=== PATIENT | male | born 1940 | race Caucasian/White ===

== ENCOUNTER 2020-11-01 01:31 | Inpatient (IN) ==
[2020-11-01] MEDS ORDERED: 0.9 % Sodium Chloride 1,000 ML IVC ONE ×2 (01:42→06:45)
[2020-11-01] MEDS ORDERED: Ketorolac 15 MG/ML VIAL IVP ONE (01:42)
[2020-11-01] MEDS ORDERED: Piperacillin/Tazobactam 3.375 GM in Water for inj. (sterile) 20 ML IVP ONE (02:09)
[2020-11-01] MEDS ORDERED: Vancomycin 1,250 MG/262.5 ML IV.SOLN IVPB ONE (03:00)
[2020-11-01 04:11] LABS: Amorphous Sediment,Urine Few per hpf (None-Few); Bacteria,Urine Few per hpf (None-Few); Bilirubin,Urine Negative (Negative); Blood,Urine Moderate (Negative); Clarity,Urine Turbid (Clear); Color,Urine Yellow (Yellow); Glucose,Urine (UA) Normal (Normal); Granular Casts,Urine Few per lpf (None Seen); Ketones,Urine Negative (Negative); Leukocyte Esterase,Urine Negative (Negative); Mucus,Urine Few per lpf (None-Few); Nitrite,Urine Negative (Negative); Protein,Urine >=300 mg/dL (Neg-Trace); RBC,Urine 0-3 per hpf (0-3); Squamous Epithelial Cell,Urine Few per hpf (None-Few); Urobilinogen,Urine Normal (Normal)
[2020-11-01 04:13] LABS: Hematocrit 38.8 % (37.5-50.1); Hemoglobin 13.1 g/dL (12.9-16.9); Immature Granulocytes % 0.4 % (0-4); Lymphocytes # 0.6 K/mcL (0.6-4.6); Lymphocytes % 12.5 %; Mean Corpuscular HGB Conc 33.8 g/dL (31.6-35.5); Mean Corpuscular Hemoglobin 30.6 pg (28.0-33.3); Mean Corpuscular Volume 90.7 fL (83.0-100.0); Mean Platelet Volume 10.9 fL (9.4-12.4); Monocytes # 0.3 K/mcL (0.0-1.3); Monocytes % 7.1 %; Neutrophils # 3.6 K/mcL (1.6-8.9); Platelet Count 170 K/mcL (140-400); Red Blood Count 4.28 M/mcL (4.19-5.50); Red Cell Distribution Width 12.1 % (11.5-14.5); White Blood Count 4.5 K/mcL (4.3-11.1)
[2020-11-01 04:13] LABS: VBG HCO3 20 mEq/L (21-27); VBG PCO2 33 mmHg (41-51); VBG PH 7.38 pH Units (7.32-7.42); VBG PO2 107 mmHg (25-50)
[2020-11-01 04:39] LABS: Albumin 3.6 g/dL (3.5-5.7); Albumin/Globulin Ratio 1.3 (1.1-2.2); Bilirubin,Direct 0.1 mg/dL (0.0-0.2); Bilirubin,Indirect 0.3 mg/dL (0.0-1.0); Bilirubin,Total 0.4 mg/dL (0.3-1.0); Calcium 8.6 mg/dL (8.6-10.3); Globulin 2.8 g/dL (2.4-3.5); Potassium 4.3 mEq/L (3.5-5.1); Total Protein 6.4 g/dL (6.4-8.9); Troponin I 0.07 ng/mL (< 0.04)
[2020-11-01 04:47] LABS: Adenovirus Not Detected (Not Detect); Coronavirus 229E Not Detected (Not Detect); Coronavirus HKU1 Not Detected (Not Detect); Coronavirus NL63 Not Detected (Not Detect); Coronavirus OC43 Not Detected (Not Detect)
[2020-11-01 04:49] LABS: Bordetella Pertussis Not Detected (Not Detect); Chlamydophila pneumoniae Not Detected (Not Detect); Human Metapneumovirus Not Detected (Not Detect); Human Rhinovirus/Enterovirus Not Detected (Not Detect); Influenza A Subtype 2009 H1 Not Detected (Not Detect); Influenza B Not Detected (Not Detect); Mycoplasma pneumoniae Not Detected (Not Detect); Parainfluenza Virus 1 Not Detected (Not Detect); Parainfluenza Virus 2 Not Detected (Not Detect); Parainfluenza Virus 3 Not Detected (Not Detect); Parainfluenza Virus 4 Not Detected (Not Detect); Respiratory Syncytial Virus Not Detected (Not Detect); SARS-CoV-2 DETECTED (Not Detect)
[2020-11-01] MEDS ORDERED: *HR* Heparin 5,000 UNIT/ML VIAL IVP ONE (04:54)
[2020-11-01] MEDS ORDERED: *HR* Heparin 5,000 UNIT/ML VIAL IVP PRN ×2 (04:54)
[2020-11-01 05:39] LABS: Heparin anti-factor XA UFH < 0.04 IU/mL (0.30-0.70); INR 1.1
[2020-11-01] MEDS: Heparin 25,000UNIT/250ML 1/2NS 25,000 UNIT/250 ML IV.SOLN IVC SCH (06:15)
[2020-11-01] MEDS ORDERED: Ondansetron 4 MG/2 ML VIAL IVP PRN (06:17)
[2020-11-01] MEDS ORDERED: Naloxone 0.4 MG/ML INJ IVP PRN (06:17)
[2020-11-01] MEDS ORDERED: Perflutren Lipid Microsphere 1.3 ML in 0.9 % Sodium Chloride 8.7 ML IVP PRN (06:39)
[2020-11-01] MEDS ORDERED: Ipratropium 1 PUFF INHALER IH SCH (08:00)
[2020-11-01] MEDS: Ipratropium 1 PUFF INHALER IH SCH ×3 (10:33→22:01)
[2020-11-01] MEDS ORDERED: *HR* Metoprolol 5 MG/5 ML VIAL IVP ONE (17:07)
[2020-11-02] MEDS ORDERED: *HR* Metoprolol 5 MG/5 ML VIAL IVP ONE ×2 (02:28→07:03)
[2020-11-02] MEDS: Benzonatate 100 MG CAPSULE PO PRN ×2 (02:40→16:53)
[2020-11-02] MEDS: Acetaminophen 325 MG TABLET PO PRN (02:53)
[2020-11-02] MEDS: Ipratropium 1 PUFF INHALER IH SCH ×4 (04:45→22:00)
[2020-11-02 05:31] LABS: ABG Base Excess -6 mEq/L (-2 to 3); ABG HCO3 17 mEq/L (21-27); ABG Oxygen Saturation 93 % (95-98); ABG PCO2 26 mmHg (35-45); ABG PH 7.42 pH Units (7.32-7.45); ABG PO2 63 mmHg (85-104); ABG TCO2 18 mEq/L (20-26)
[2020-11-02 06:55] LABS: Hematocrit 38.9 % (37.5-50.1); Hemoglobin 13.6 g/dL (12.9-16.9); Mean Corpuscular Hemoglobin 31.5 pg (28.0-33.3); Mean Platelet Volume 10.8 fL (9.4-12.4); Platelet Count 205 K/mcL (140-400); Red Blood Count 4.32 M/mcL (4.19-5.50); Red Cell Distribution Width 12.2 % (11.5-14.5)
[2020-11-02 06:58] LABS: White Blood Count 10.4 K/mcL (4.3-11.1)
[2020-11-02 08:16] LABS: Calcium 8.3 mg/dL (8.6-10.3); Potassium 4.5 mEq/L (3.5-5.1)
[2020-11-02] MEDS: *HR* Metoprolol 5 MG/5 ML VIAL IVP PRN ×2 (16:53→23:21)
[2020-11-02] MEDS: Metoprolol XL (24 HR) Succ 25 MG TAB.ER.24H PO SCH (16:53)
[2020-11-02] MEDS: Furosemide 20 MG/2 ML VIAL IVP SCH (16:53)
[2020-11-02] MEDS: Melatonin 3 MG TABLET PO PRN (22:43)
[2020-11-02] MEDS: Heparin 25,000UNIT/250ML 1/2NS 25,000 UNIT/250 ML IV.SOLN IVC SCH (23:26)
[2020-11-03 01:21] LABS: Basophils % 0.1 %; Hematocrit 38.1 % (37.5-50.1); Immature Granulocytes % 0.8 % (0-4); Lymphocytes # 0.6 K/mcL (0.6-4.6); Lymphocytes % 4.8 %; Mean Corpuscular HGB Conc 34.1 g/dL (31.6-35.5); Mean Corpuscular Hemoglobin 30.2 pg (28.0-33.3); Mean Corpuscular Volume 88.6 fL (83.0-100.0); Mean Platelet Volume 10.6 fL (9.4-12.4); Monocytes # 0.3 K/mcL (0.0-1.3); Monocytes % 2.5 %; Neutrophils # 10.6 K/mcL (1.6-8.9); Platelet Count 233 K/mcL (140-400); Red Cell Distribution Width 12.4 % (11.5-14.5); Segmented Neutrophils % 91.8 %; White Blood Count 11.5 K/mcL (4.3-11.1)
[2020-11-03 01:39] LABS: Calcium 8.3 mg/dL (8.6-10.3); Potassium 4.6 mEq/L (3.5-5.1)
[2020-11-03] MEDS: Ipratropium 1 PUFF INHALER IH SCH ×4 (04:14→21:11)
[2020-11-03] MEDS: Heparin 25,000UNIT/250ML 1/2NS 25,000 UNIT/250 ML IV.SOLN IVC SCH (04:15)
[2020-11-03] MEDS: Acetaminophen 325 MG TABLET PO PRN ×2 (05:02→16:08)
[2020-11-03] MEDS: *HR* Metoprolol 5 MG/5 ML VIAL IVP PRN ×3 (06:09→17:28)
[2020-11-03] MEDS: Furosemide 20 MG/2 ML VIAL IVP SCH (09:31)
[2020-11-03] MEDS: Benzonatate 100 MG CAPSULE PO PRN (09:31)
[2020-11-03] MEDS: Metoprolol XL (24 HR) Succ 25 MG TAB.ER.24H PO SCH (09:32)
[2020-11-03] MEDS ORDERED: *HR* Digoxin 0.5 MG/2 ML AMPUL IVP ONE (10:24)
[2020-11-03] MEDS ORDERED: *HR* Digoxin 0.5 MG/2 ML AMPUL ONE (10:49)
[2020-11-03] MEDS ORDERED: Azithromycin 500 MG in 0.9 % Sodium Chloride 250 ML IVPB ONE (16:06)
[2020-11-03] MEDS: *HR* Digoxin 0.5 MG/2 ML AMPUL IVP SCH ×2 (17:06→22:38)
[2020-11-03] MEDS: cefTRIAXone 2,000 MG in Water for inj. (sterile) 20 ML IVP SCH (17:06)
[2020-11-03] MEDS: *HR* LORazepam 2 MG/ML VIAL IVP PRN (20:40)
[2020-11-03] MEDS ORDERED: Dexmedetomidine HCl 400 MCG/100 ML MLS IVC ONE (22:28)
[2020-11-03] MEDS: Dexmedetomidine HCl 400 MCG/100 ML MLS IVC SCH (22:30)
[2020-11-04] MEDS: Acetaminophen 325 MG TABLET PO PRN (00:28)
[2020-11-04] MEDS: Heparin 25,000UNIT/250ML 1/2NS 25,000 UNIT/250 ML IV.SOLN IVC SCH ×2 (00:29→23:08)
[2020-11-04] MEDS ORDERED: Acetaminophen IV 1,000 MG/100 ML BAG IVPB ONE (01:04)
[2020-11-04 02:42] LABS: Hematocrit 37.4 % (37.5-50.1); Hemoglobin 12.7 g/dL (12.9-16.9); Immature Granulocytes % 0.9 % (0-4); Lymphocytes # 0.3 K/mcL (0.6-4.6); Lymphocytes % 3.3 %; Mean Corpuscular Hemoglobin 30.6 pg (28.0-33.3); Mean Corpuscular Volume 90.1 fL (83.0-100.0); Mean Platelet Volume 11.4 fL (9.4-12.4); Monocytes # 0.3 K/mcL (0.0-1.3); Monocytes % 2.9 %; Neutrophils # 8.9 K/mcL (1.6-8.9); Platelet Count 243 K/mcL (140-400); Red Blood Count 4.15 M/mcL (4.19-5.50); Red Cell Distribution Width 12.4 % (11.5-14.5); Segmented Neutrophils % 92.9 %; White Blood Count 9.6 K/mcL (4.3-11.1)
[2020-11-04 03:06] LABS: Calcium 8.2 mg/dL (8.6-10.3); Potassium 4.7 mEq/L (3.5-5.1)
[2020-11-04] MEDS: Ipratropium 1 PUFF INHALER IH SCH ×4 (04:24→21:58)
[2020-11-04] MEDS: Dexmedetomidine HCl 400 MCG/100 ML MLS IVC SCH ×3 (05:32→23:08)
[2020-11-04] MEDS: Furosemide 20 MG/2 ML VIAL IVP SCH (07:56)
[2020-11-04] MEDS: Metoprolol XL (24 HR) Succ 25 MG TAB.ER.24H PO SCH (07:57)
[2020-11-04] MEDS: cefTRIAXone 2,000 MG in Water for inj. (sterile) 20 ML IVP SCH (16:21)
[2020-11-04] MEDS: Pantoprazole 40 MG VIAL IVP SCH (18:01)
[2020-11-04] MEDS ORDERED: Pantoprazole 40 MG VIAL IVP ONE (23:34)
[2020-11-05] MEDS: *HR* LORazepam 2 MG/ML VIAL IVP PRN ×2 (00:47→05:24)
[2020-11-05 02:59] LABS: Basophils % 0.1 %; Hematocrit 40.1 % (37.5-50.1); Hemoglobin 13.8 g/dL (12.9-16.9); Immature Granulocytes % 0.8 % (0-4); Lymphocytes # 0.3 K/mcL (0.6-4.6); Lymphocytes % 2.9 %; Mean Corpuscular HGB Conc 34.4 g/dL (31.6-35.5); Mean Corpuscular Hemoglobin 30.7 pg (28.0-33.3); Mean Corpuscular Volume 89.1 fL (83.0-100.0); Mean Platelet Volume 11.6 fL (9.4-12.4); Monocytes # 0.3 K/mcL (0.0-1.3); Monocytes % 3.2 %; Neutrophils # 9.9 K/mcL (1.6-8.9); Platelet Count 300 K/mcL (140-400); Red Cell Distribution Width 12.2 % (11.5-14.5); White Blood Count 10.6 K/mcL (4.3-11.1)
[2020-11-05 03:16] LABS: Calcium 8.7 mg/dL (8.6-10.3); Potassium 4.6 mEq/L (3.5-5.1)
[2020-11-05] MEDS: Ipratropium 1 PUFF INHALER IH SCH ×4 (03:45→21:27)
[2020-11-05] MEDS: Dexmedetomidine HCl 400 MCG/100 ML MLS IVC SCH ×3 (04:53→23:51)
[2020-11-05] MEDS: Pantoprazole 40 MG VIAL IVP SCH ×2 (05:25→17:07)
[2020-11-05] MEDS: *HR* Metoprolol 5 MG/5 ML VIAL IVP PRN (05:58)
[2020-11-05] MEDS: Metoprolol XL (24 HR) Succ 25 MG TAB.ER.24H PO SCH (07:38)
[2020-11-05] MEDS: Furosemide 20 MG/2 ML VIAL IVP SCH (07:38)
[2020-11-05] MEDS: Acetaminophen 325 MG TABLET PO PRN (12:31)
[2020-11-05] MEDS ORDERED: Acetaminophen IV 1,000 MG/100 ML BAG IVPB ONE (12:46)
[2020-11-05] MEDS: cefTRIAXone 2,000 MG in Water for inj. (sterile) 20 ML IVP SCH (17:06)
[2020-11-05] MEDS: Heparin 25,000UNIT/250ML 1/2NS 25,000 UNIT/250 ML IV.SOLN IVC SCH (19:19)
[2020-11-05] MEDS: Melatonin 3 MG TABLET PO PRN (21:05)
[2020-11-05] MEDS: Acetaminophen IV 1,000 MG/100 ML BAG IVPB SCH (21:05)
[2020-11-06] MEDS: Ipratropium 1 PUFF INHALER IH SCH ×4 (03:54→21:02)
[2020-11-06] MEDS: Acetaminophen IV 1,000 MG/100 ML BAG IVPB SCH ×3 (04:36→20:56)
[2020-11-06] MEDS: Pantoprazole 40 MG VIAL IVP SCH ×2 (05:14→16:05)
[2020-11-06] MEDS: Furosemide 20 MG/2 ML VIAL IVP SCH (07:38)
[2020-11-06] MEDS: Metoprolol XL (24 HR) Succ 25 MG TAB.ER.24H PO SCH (07:39)
[2020-11-06] MEDS: Dexmedetomidine HCl 400 MCG/100 ML MLS IVC SCH (11:11)
[2020-11-06] MEDS: *HR* Metoprolol 5 MG/5 ML VIAL IVP PRN (13:47)
[2020-11-06] MEDS: cefTRIAXone 2,000 MG in Water for inj. (sterile) 20 ML IVP SCH (16:04)
[2020-11-06] MEDS: Heparin 25,000UNIT/250ML 1/2NS 25,000 UNIT/250 ML IV.SOLN IVC SCH (16:42)
[2020-11-06] MEDS: *HR* LORazepam 2 MG/ML VIAL IVP PRN (21:38)
[2020-11-07] MEDS: Dexmedetomidine HCl 400 MCG/100 ML MLS IVC SCH ×3 (01:41→21:48)
[2020-11-07] MEDS: Ipratropium 1 PUFF INHALER IH SCH ×4 (04:29→22:50)
[2020-11-07] MEDS: Acetaminophen IV 1,000 MG/100 ML BAG IVPB SCH ×3 (04:47→21:38)
[2020-11-07] MEDS: Heparin 25,000UNIT/250ML 1/2NS 25,000 UNIT/250 ML IV.SOLN IVC SCH ×2 (04:48→15:58)
[2020-11-07] MEDS: Pantoprazole 40 MG VIAL IVP SCH ×2 (05:07→17:15)
[2020-11-07 06:03] LABS: Basophils % 0.2 %; Hemoglobin 13.4 g/dL (12.9-16.9); Immature Granulocytes % 1.8 % (0-4); Lymphocytes # 0.5 K/mcL (0.6-4.6); Lymphocytes % 4.1 %; Mean Corpuscular HGB Conc 35.3 g/dL (31.6-35.5); Mean Corpuscular Hemoglobin 31.1 pg (28.0-33.3); Mean Corpuscular Volume 88.2 fL (83.0-100.0); Mean Platelet Volume 10.8 fL (9.4-12.4); Monocytes # 0.3 K/mcL (0.0-1.3); Neutrophils # 10.3 K/mcL (1.6-8.9); Platelet Count 360 K/mcL (140-400); Red Blood Count 4.31 M/mcL (4.19-5.50); Red Cell Distribution Width 12.1 % (11.5-14.5); Segmented Neutrophils % 90.9 %; White Blood Count 11.4 K/mcL (4.3-11.1)
[2020-11-07 06:18] LABS: Calcium 8.7 mg/dL (8.6-10.3); Potassium 4.2 mEq/L (3.5-5.1)
[2020-11-07] MEDS: Furosemide 20 MG/2 ML VIAL IVP SCH (08:45)
[2020-11-07] MEDS: Metoprolol XL (24 HR) Succ 25 MG TAB.ER.24H PO SCH ×3 (09:50→14:48)
[2020-11-07] MEDS: cefTRIAXone 2,000 MG in Water for inj. (sterile) 20 ML IVP SCH (17:15)
[2020-11-07] MEDS: *HR* Metoprolol 5 MG/5 ML VIAL IVP PRN (18:38)
[2020-11-07] MEDS: Melatonin 3 MG TABLET PO PRN (20:14)
[2020-11-07] MEDS: *HR* LORazepam 2 MG/ML VIAL IVP PRN (20:14)
[2020-11-08] MEDS: *HR* LORazepam 2 MG/ML VIAL IVP PRN ×4 (03:08→20:45)
[2020-11-08] MEDS: Dexmedetomidine HCl 400 MCG/100 ML MLS IVC SCH ×3 (03:26→18:31)
[2020-11-08] MEDS: Ipratropium 1 PUFF INHALER IH SCH ×4 (04:27→22:12)
[2020-11-08] MEDS: Heparin 25,000UNIT/250ML 1/2NS 25,000 UNIT/250 ML IV.SOLN IVC SCH ×2 (05:03→15:01)
[2020-11-08 05:11] LABS: Basophils % 0.4 %; Hematocrit 40.4 % (37.5-50.1); Hemoglobin 13.7 g/dL (12.9-16.9); Immature Granulocytes % 2.1 % (0-4); Lymphocytes # 0.4 K/mcL (0.6-4.6); Mean Corpuscular HGB Conc 33.9 g/dL (31.6-35.5); Mean Corpuscular Hemoglobin 30.4 pg (28.0-33.3); Mean Corpuscular Volume 89.6 fL (83.0-100.0); Mean Platelet Volume 11.5 fL (9.4-12.4); Monocytes # 0.3 K/mcL (0.0-1.3); Monocytes % 2.7 %; Neutrophils # 9.2 K/mcL (1.6-8.9); Platelet Count 295 K/mcL (140-400); Red Blood Count 4.51 M/mcL (4.19-5.50); Red Cell Distribution Width 12.4 % (11.5-14.5); Segmented Neutrophils % 90.8 %; White Blood Count 10.1 K/mcL (4.3-11.1)
[2020-11-08] MEDS: Acetaminophen IV 1,000 MG/100 ML BAG IVPB SCH ×3 (05:18→19:48)
[2020-11-08 05:27] LABS: Calcium 8.7 mg/dL (8.6-10.3); Potassium 4.6 mEq/L (3.5-5.1)
[2020-11-08] MEDS: Pantoprazole 40 MG VIAL IVP SCH ×2 (05:30→17:08)
[2020-11-08] MEDS: Furosemide 20 MG/2 ML VIAL IVP SCH (08:07)
[2020-11-08] MEDS: Metoprolol XL (24 HR) Succ 25 MG TAB.ER.24H PO SCH (08:08)
[2020-11-08] MEDS: Acetaminophen 325 MG TABLET PO PRN (08:08)
[2020-11-08] MEDS ORDERED: Haloperidol Lactate 5 MG/ML VIAL IVP ONE (08:26)
[2020-11-08] MEDS: cefTRIAXone 2,000 MG in Water for inj. (sterile) 20 ML IVP SCH (17:07)
[2020-11-08] MEDS ORDERED: *HR* LORazepam 2 MG/ML VIAL IVP ONE (22:14)
[2020-11-09] MEDS: Dexmedetomidine HCl 400 MCG/100 ML MLS IVC SCH ×4 (00:58→20:10)
[2020-11-09] MEDS: *HR* LORazepam 2 MG/ML VIAL IVP PRN (01:20)
[2020-11-09] MEDS: Ipratropium 1 PUFF INHALER IH SCH ×4 (03:49→22:24)
[2020-11-09] MEDS ORDERED: Haloperidol Lactate 5 MG/ML VIAL IVP ONE (04:54)
[2020-11-09] MEDS: Pantoprazole 40 MG VIAL IVP SCH ×2 (05:04→16:08)
[2020-11-09] MEDS: Acetaminophen IV 1,000 MG/100 ML BAG IVPB SCH ×3 (05:19→21:22)
[2020-11-09 07:55] LABS: Basophils % 0.2 %; Hematocrit 43.6 % (37.5-50.1); Hemoglobin 14.9 g/dL (12.9-16.9); Lymphocytes # 0.5 K/mcL (0.6-4.6); Lymphocytes % 3.3 %; Mean Corpuscular HGB Conc 34.2 g/dL (31.6-35.5); Mean Corpuscular Hemoglobin 30.5 pg (28.0-33.3); Mean Corpuscular Volume 89.2 fL (83.0-100.0); Mean Platelet Volume 11.2 fL (9.4-12.4); Monocytes # 0.3 K/mcL (0.0-1.3); Monocytes % 2.4 %; Neutrophils # 12.7 K/mcL (1.6-8.9); Platelet Count 451 K/mcL (140-400); Red Blood Count 4.89 M/mcL (4.19-5.50); Red Cell Distribution Width 12.3 % (11.5-14.5); Segmented Neutrophils % 92.1 %; White Blood Count 13.8 K/mcL (4.3-11.1)
[2020-11-09] MEDS: Metoprolol XL (24 HR) Succ 25 MG TAB.ER.24H PO SCH (07:57)
[2020-11-09] MEDS: Furosemide 20 MG/2 ML VIAL IVP SCH (07:57)
[2020-11-09 08:07] LABS: Calcium 9.3 mg/dL (8.6-10.3); Potassium 3.8 mEq/L (3.5-5.1)
[2020-11-09] MEDS: *HR* HYDROmorphone 2 MG/ML SYRINGE IVP PRN ×3 (08:48→18:21)
[2020-11-09] MEDS: Haloperidol Lactate 5 MG/ML VIAL IVP PRN ×2 (14:31→21:13)
[2020-11-09] MEDS: cefTRIAXone 2,000 MG in Water for inj. (sterile) 20 ML IVP SCH (16:09)
[2020-11-09] MEDS: Heparin 25,000UNIT/250ML 1/2NS 25,000 UNIT/250 ML IV.SOLN IVC SCH (17:13)
[2020-11-09] MEDS: *HR* Metoprolol 5 MG/5 ML VIAL IVP PRN (23:37)
[2020-11-10] MEDS: *HR* HYDROmorphone 2 MG/ML SYRINGE IVP PRN ×4 (00:43→19:43)
[2020-11-10] MEDS: Dexmedetomidine HCl 400 MCG/100 ML MLS IVC SCH ×5 (01:15→19:42)
[2020-11-10] MEDS ORDERED: Haloperidol Lactate 5 MG/ML VIAL IVP ONE (02:08)
[2020-11-10] MEDS ORDERED: *HR* Metoprolol 5 MG/5 ML VIAL IVP ONE ×2 (02:17→03:58)
[2020-11-10] MEDS ORDERED: Ziprasidone 10 MG, Closed System Device IM Kit 1 EACH in Water for inj. (sterile) 0.5 ML IM ONE (03:57)
[2020-11-10] MEDS: Ipratropium 1 PUFF INHALER IH SCH ×2 (04:29→09:28)
[2020-11-10] MEDS: Acetaminophen IV 1,000 MG/100 ML BAG IVPB SCH ×3 (05:09→20:30)
[2020-11-10] MEDS: Pantoprazole 40 MG VIAL IVP SCH ×2 (05:49→16:06)
[2020-11-10 06:30] LABS: Hematocrit 37.1 % (37.5-50.1); Mean Corpuscular HGB Conc 35.3 g/dL (31.6-35.5); Mean Corpuscular Hemoglobin 31.3 pg (28.0-33.3); Mean Corpuscular Volume 88.8 fL (83.0-100.0); Mean Platelet Volume 11.1 fL (9.4-12.4); Platelet Count 389 K/mcL (140-400); Red Blood Count 4.18 M/mcL (4.19-5.50); Red Cell Distribution Width 12.4 % (11.5-14.5); White Blood Count 11.7 K/mcL (4.3-11.1)
[2020-11-10 06:41] LABS: Hemoglobin 13.1 g/dL (12.9-16.9)
[2020-11-10 06:44] LABS: Calcium 9.1 mg/dL (8.6-10.3); Potassium 3.8 mEq/L (3.5-5.1)
[2020-11-10] MEDS: Haloperidol Lactate 5 MG/ML VIAL IVP PRN ×3 (08:20→20:31)
[2020-11-10] MEDS: Furosemide 20 MG/2 ML VIAL IVP SCH (08:20)
[2020-11-10] MEDS: Metoprolol XL (24 HR) Succ 25 MG TAB.ER.24H PO SCH (08:21)
[2020-11-10] MEDS: *HR* Metoprolol 5 MG/5 ML VIAL IVP PRN ×2 (14:19→23:20)
[2020-11-10] MEDS ORDERED: Ipratropium 1 PUFF INHALER IH PRN (15:10)
[2020-11-10] MEDS: cefTRIAXone 2,000 MG in Water for inj. (sterile) 20 ML IVP SCH (16:06)
[2020-11-10] MEDS: Heparin 25,000UNIT/250ML 1/2NS 25,000 UNIT/250 ML IV.SOLN IVC SCH (19:43)
[2020-11-11] MEDS: Dexmedetomidine HCl 400 MCG/100 ML MLS IVC SCH ×3 (00:52→10:41)
[2020-11-11] MEDS: *HR* HYDROmorphone 2 MG/ML SYRINGE IVP PRN ×2 (04:05→13:05)
[2020-11-11] MEDS: Acetaminophen IV 1,000 MG/100 ML BAG IVPB SCH ×3 (04:06→19:48)
[2020-11-11] MEDS: Haloperidol Lactate 5 MG/ML VIAL IVP PRN ×2 (05:06→18:19)
[2020-11-11] MEDS: Pantoprazole 40 MG VIAL IVP SCH ×2 (05:06→16:57)
[2020-11-11] MEDS: *HR* Metoprolol 5 MG/5 ML VIAL IVP PRN ×3 (05:20→18:13)
[2020-11-11] MEDS: Metoprolol XL (24 HR) Succ 25 MG TAB.ER.24H PO SCH (09:04)
[2020-11-11] MEDS: Furosemide 20 MG/2 ML VIAL IVP SCH (09:04)
[2020-11-11] MEDS: QUEtiapine Fumarate 25 MG TABLET PO SCH ×2 (12:02→19:47)
[2020-11-11] MEDS: DilTIAZem CD (24hr) 120 MG CAP.ER.24H PO SCH ×2 (16:05→16:52)
[2020-11-11] MEDS: cefTRIAXone 2,000 MG in Water for inj. (sterile) 20 ML IVP SCH (16:57)
[2020-11-11] MEDS ORDERED: *HR* Metoprolol 5 MG/5 ML VIAL IVP ONE (16:59)
[2020-11-11] MEDS: Heparin 25,000UNIT/250ML 1/2NS 25,000 UNIT/250 ML IV.SOLN IVC SCH (22:25)
[2020-11-12] MEDS: *HR* Metoprolol 5 MG/5 ML VIAL IVP PRN (00:12)
[2020-11-12] MEDS: Haloperidol Lactate 5 MG/ML VIAL IVP PRN (00:39)
[2020-11-12] MEDS: Dexmedetomidine HCl 400 MCG/100 ML MLS IVC SCH ×2 (01:04→10:37)
[2020-11-12 01:13] LABS: Basophils % 0.2 %; Hematocrit 39.3 % (37.5-50.1); Hemoglobin 13.7 g/dL (12.9-16.9); Immature Granulocytes % 2.6 % (0-4); Lymphocytes # 0.4 K/mcL (0.6-4.6); Lymphocytes % 3.2 %; Mean Corpuscular HGB Conc 34.9 g/dL (31.6-35.5); Mean Corpuscular Volume 88.9 fL (83.0-100.0); Mean Platelet Volume 10.9 fL (9.4-12.4); Monocytes # 0.2 K/mcL (0.0-1.3); Neutrophils # 10.8 K/mcL (1.6-8.9); Platelet Count 406 K/mcL (140-400); Red Blood Count 4.42 M/mcL (4.19-5.50); Red Cell Distribution Width 12.6 % (11.5-14.5); White Blood Count 11.7 K/mcL (4.3-11.1)
[2020-11-12 01:40] LABS: Calcium 9.3 mg/dL (8.6-10.3); Potassium 3.9 mEq/L (3.5-5.1)
[2020-11-12] MEDS: Acetaminophen IV 1,000 MG/100 ML BAG IVPB SCH ×3 (06:09→21:18)
[2020-11-12] MEDS: Pantoprazole 40 MG VIAL IVP SCH ×2 (06:10→18:14)
[2020-11-12] MEDS: Furosemide 20 MG/2 ML VIAL IVP SCH (08:30)
[2020-11-12] MEDS: Metoprolol XL (24 HR) Succ 25 MG TAB.ER.24H PO SCH (08:31)
[2020-11-12] MEDS: DilTIAZem CD (24hr) 120 MG CAP.ER.24H PO SCH (08:31)
[2020-11-12] MEDS: QUEtiapine Fumarate 25 MG TABLET PO SCH ×2 (08:31→21:08)
[2020-11-12] MEDS: cefTRIAXone 2,000 MG in Water for inj. (sterile) 20 ML IVP SCH (16:53)
[2020-11-12] MEDS: Heparin 25,000UNIT/250ML 1/2NS 25,000 UNIT/250 ML IV.SOLN IVC SCH (21:09)
[2020-11-13 02:00] LABS: Basophils % 0.3 %; Hematocrit 39.4 % (37.5-50.1); Hemoglobin 13.7 g/dL (12.9-16.9); Immature Granulocytes % 1.6 % (0-4); Lymphocytes # 0.3 K/mcL (0.6-4.6); Lymphocytes % 2.4 %; Mean Corpuscular HGB Conc 34.8 g/dL (31.6-35.5); Mean Corpuscular Hemoglobin 31.1 pg (28.0-33.3); Mean Corpuscular Volume 89.3 fL (83.0-100.0); Mean Platelet Volume 11.2 fL (9.4-12.4); Monocytes # 0.2 K/mcL (0.0-1.3); Monocytes % 1.9 %; Neutrophils # 11.2 K/mcL (1.6-8.9); Platelet Count 350 K/mcL (140-400); Red Blood Count 4.41 M/mcL (4.19-5.50); Red Cell Distribution Width 12.8 % (11.5-14.5); Segmented Neutrophils % 93.8 %; White Blood Count 11.9 K/mcL (4.3-11.1)
[2020-11-13 02:21] LABS: Calcium 9.3 mg/dL (8.6-10.3); Potassium 4.2 mEq/L (3.5-5.1)
[2020-11-13] MEDS: Acetaminophen IV 1,000 MG/100 ML BAG IVPB SCH ×2 (05:09→14:57)
[2020-11-13] MEDS: Dexmedetomidine HCl 400 MCG/100 ML MLS IVC SCH (05:31)
[2020-11-13] MEDS: Pantoprazole 40 MG VIAL IVP SCH (06:19)
[2020-11-13] MEDS: Furosemide 20 MG/2 ML VIAL IVP SCH (08:19)
[2020-11-13] MEDS: DilTIAZem CD (24hr) 120 MG CAP.ER.24H PO SCH ×3 (08:20→12:09)
[2020-11-13] MEDS: QUEtiapine Fumarate 25 MG TABLET PO SCH ×3 (08:20→21:31)
[2020-11-13] MEDS: Metoprolol XL (24 HR) Succ 25 MG TAB.ER.24H PO SCH ×2 (11:11→12:08)
[2020-11-13] MEDS: Budesonide/Formoterol 160/4.5 1 PUFF INH IH SCH ×2 (14:54→19:54)
[2020-11-13] MEDS: Acetylcysteine 10% 2 ML INHSOL IH SCH ×4 (14:55→23:20)
[2020-11-13] MEDS: Ipratropium/Albuterol Neb 3 ML IH PRN ×2 (15:35→19:54)
[2020-11-13] MEDS: cefTRIAXone 2,000 MG in Water for inj. (sterile) 20 ML IVP SCH (17:16)
[2020-11-13] MEDS: Heparin 25,000UNIT/250ML 1/2NS 25,000 UNIT/250 ML IV.SOLN IVC SCH (18:17)
[2020-11-13] MEDS: Melatonin 3 MG TABLET PO PRN (21:44)
[2020-11-14] MEDS: Dexmedetomidine HCl 400 MCG/100 ML MLS IVC SCH ×2 (00:30→22:40)
[2020-11-14 00:57] LABS: Basophils % 0.1 %; Hematocrit 38.7 % (37.5-50.1); Hemoglobin 13.2 g/dL (12.9-16.9); Immature Granulocytes % 1.8 % (0-4); Lymphocytes # 0.3 K/mcL (0.6-4.6); Lymphocytes % 2.3 %; Mean Corpuscular HGB Conc 34.1 g/dL (31.6-35.5); Mean Corpuscular Hemoglobin 30.7 pg (28.0-33.3); Mean Platelet Volume 11.2 fL (9.4-12.4); Monocytes # 0.3 K/mcL (0.0-1.3); Monocytes % 2.2 %; Neutrophils # 12.8 K/mcL (1.6-8.9); Platelet Count 314 K/mcL (140-400); Red Cell Distribution Width 12.9 % (11.5-14.5); Segmented Neutrophils % 93.6 %; White Blood Count 13.7 K/mcL (4.3-11.1)
[2020-11-14 01:16] LABS: Calcium 9.1 mg/dL (8.6-10.3); Potassium 3.8 mEq/L (3.5-5.1)
[2020-11-14] MEDS: Acetylcysteine 10% 2 ML INHSOL IH SCH ×6 (04:07→23:51)
[2020-11-14] MEDS: Ipratropium/Albuterol Neb 3 ML IH PRN ×5 (07:25→23:51)
[2020-11-14] MEDS: Budesonide/Formoterol 160/4.5 1 PUFF INH IH SCH ×2 (07:25→20:08)
[2020-11-14] MEDS: QUEtiapine Fumarate 25 MG TABLET PO SCH ×2 (09:41→19:59)
[2020-11-14] MEDS: Furosemide 20 MG/2 ML VIAL IVP SCH (09:42)
[2020-11-14] MEDS: DilTIAZem CD (24hr) 120 MG CAP.ER.24H PO SCH (09:42)
[2020-11-14] MEDS: Metoprolol XL (24 HR) Succ 25 MG TAB.ER.24H PO SCH (09:43)
[2020-11-14] MEDS: cefTRIAXone 2,000 MG in Water for inj. (sterile) 20 ML IVP SCH (17:20)
[2020-11-14] MEDS: Melatonin 3 MG TABLET PO PRN (19:59)
[2020-11-15] MEDS: Ipratropium/Albuterol Neb 3 ML IH PRN ×5 (04:23→23:57)
[2020-11-15] MEDS: Acetylcysteine 10% 2 ML INHSOL IH SCH ×6 (04:24→23:57)
[2020-11-15 04:49] LABS: Basophils % 0.1 %; Hematocrit 38.3 % (37.5-50.1); Lymphocytes # 0.3 K/mcL (0.6-4.6); Lymphocytes % 2.4 %; Mean Corpuscular HGB Conc 33.9 g/dL (31.6-35.5); Mean Corpuscular Hemoglobin 30.6 pg (28.0-33.3); Mean Corpuscular Volume 90.1 fL (83.0-100.0); Mean Platelet Volume 11.4 fL (9.4-12.4); Monocytes # 0.4 K/mcL (0.0-1.3); Monocytes % 2.9 %; Neutrophils # 13.4 K/mcL (1.6-8.9); Platelet Count 267 K/mcL (140-400); Red Blood Count 4.25 M/mcL (4.19-5.50); Segmented Neutrophils % 93.6 %; White Blood Count 14.4 K/mcL (4.3-11.1)
[2020-11-15 05:06] LABS: BUN/Creatinine Ratio 50 (6-26); Blood Urea Nitrogen 63 mg/dL (8-23); Calcium 9.1 mg/dL (8.6-10.3); Carbon Dioxide 23 mEq/L (23-29); Chloride 109 mEq/L (98-107); Glucose 136 mg/dL (70-105); Osmolality,Calculated 308 (280-300); Potassium 3.8 mEq/L (3.5-5.1); Sodium 139 mEq/L (136-145); eGFR For African Americans > 60 (> 60); eGFR For Non-African Americans 55 (> 60)
[2020-11-15] MEDS: QUEtiapine Fumarate 25 MG TABLET PO SCH ×3 (09:08→21:45)
[2020-11-15] MEDS: Metoprolol XL (24 HR) Succ 25 MG TAB.ER.24H PO SCH (09:08)
[2020-11-15] MEDS: DilTIAZem CD (24hr) 120 MG CAP.ER.24H PO SCH (09:08)
[2020-11-15] MEDS: Furosemide 20 MG/2 ML VIAL IVP SCH (09:24)
[2020-11-15] MEDS: Budesonide/Formoterol 160/4.5 1 PUFF INH IH SCH ×2 (11:38→20:46)
[2020-11-15] MEDS: *HR* Metoprolol 5 MG/5 ML VIAL IVP PRN ×2 (15:37→21:45)
[2020-11-15] MEDS: cefTRIAXone 2,000 MG in Water for inj. (sterile) 20 ML IVP SCH (16:50)
[2020-11-15] MEDS: Heparin 25,000UNIT/250ML 1/2NS 25,000 UNIT/250 ML IV.SOLN IVC SCH (21:50)
[2020-11-16] MEDS: Acetylcysteine 10% 2 ML INHSOL IH SCH ×6 (03:54→23:10)
[2020-11-16] MEDS: Ipratropium/Albuterol Neb 3 ML IH PRN ×5 (03:54→20:03)
[2020-11-16 06:46] LABS: Basophils % 0.1 %; Hemoglobin 13.7 g/dL (12.9-16.9); Immature Granulocytes % 1.1 % (0-4); Lymphocytes # 0.4 K/mcL (0.6-4.6); Lymphocytes % 2.4 %; Mean Corpuscular HGB Conc 34.3 g/dL (31.6-35.5); Mean Corpuscular Hemoglobin 31.2 pg (28.0-33.3); Mean Corpuscular Volume 91.1 fL (83.0-100.0); Mean Platelet Volume 11.4 fL (9.4-12.4); Monocytes # 0.5 K/mcL (0.0-1.3); Monocytes % 3.1 %; Neutrophils # 15.3 K/mcL (1.6-8.9); Platelet Count 232 K/mcL (140-400); Red Blood Count 4.39 M/mcL (4.19-5.50); Red Cell Distribution Width 13.2 % (11.5-14.5); Segmented Neutrophils % 93.3 %; White Blood Count 16.4 K/mcL (4.3-11.1)
[2020-11-16 07:18] LABS: BUN/Creatinine Ratio 51 (6-26); Blood Urea Nitrogen 66 mg/dL (8-23); Carbon Dioxide 20 mEq/L (23-29); Chloride 109 mEq/L (98-107); Glucose 126 mg/dL (70-105); Osmolality,Calculated 309 (280-300); Sodium 139 mEq/L (136-145); eGFR For African Americans > 60 (> 60); eGFR For Non-African Americans 53 (> 60)
[2020-11-16] MEDS: Budesonide/Formoterol 160/4.5 1 PUFF INH IH SCH ×2 (07:44→20:04)
[2020-11-16] MEDS: Furosemide 20 MG/2 ML VIAL IVP SCH (08:03)
[2020-11-16] MEDS: QUEtiapine Fumarate 25 MG TABLET PO SCH ×2 (08:04→20:12)
[2020-11-16] MEDS: Metoprolol XL (24 HR) Succ 25 MG TAB.ER.24H PO SCH (08:04)
[2020-11-16] MEDS: DilTIAZem CD (24hr) 120 MG CAP.ER.24H PO SCH (08:04)
[2020-11-16 09:48] LABS: Calcium 9.3 mg/dL (8.6-10.3)
[2020-11-16] MEDS ORDERED: Furosemide 20 MG/2 ML VIAL IVP ONE (10:36)
[2020-11-16] MEDS: *HR* Metoprolol 5 MG/5 ML VIAL IVP PRN (20:20)
[2020-11-16] MEDS: Heparin 25,000UNIT/250ML 1/2NS 25,000 UNIT/250 ML IV.SOLN IVC SCH (22:35)
[2020-11-16] MEDS: Dexmedetomidine HCl 400 MCG/100 ML MLS IVC SCH (22:36)
[2020-11-17] MEDS: Ipratropium/Albuterol Neb 3 ML IH PRN ×6 (03:07→23:59)
[2020-11-17] MEDS: Acetylcysteine 10% 2 ML INHSOL IH SCH ×6 (03:07→23:59)
[2020-11-17] MEDS: *HR* Metoprolol 5 MG/5 ML VIAL IVP PRN (03:42)
[2020-11-17] MEDS: Dexmedetomidine HCl 400 MCG/100 ML MLS IVC SCH ×2 (04:38→19:52)
[2020-11-17] MEDS: Heparin 25,000UNIT/250ML 1/2NS 25,000 UNIT/250 ML IV.SOLN IVC SCH ×2 (04:38→04:39)
[2020-11-17] MEDS: Budesonide/Formoterol 160/4.5 1 PUFF INH IH SCH ×2 (07:56→20:28)
[2020-11-17] MEDS: Furosemide 20 MG/2 ML VIAL IVP SCH (08:34)
[2020-11-17] MEDS: Benzonatate 100 MG CAPSULE PO PRN ×2 (08:35→16:35)
[2020-11-17] MEDS: DilTIAZem CD (24hr) 180 MG CAP.ER.24H PO SCH (08:36)
[2020-11-17] MEDS: Metoprolol XL (24 HR) Succ 50 MG TAB.ER.24H PO SCH ×2 (08:36→11:40)
[2020-11-17] MEDS: QUEtiapine Fumarate 25 MG TABLET PO SCH ×2 (08:36→20:50)
[2020-11-18] MEDS: Benzonatate 100 MG CAPSULE PO PRN (00:21)
[2020-11-18] MEDS: Acetylcysteine 10% 2 ML INHSOL IH SCH ×2 (03:48→07:42)
[2020-11-18] MEDS: Budesonide/Formoterol 160/4.5 1 PUFF INH IH SCH (07:42)
[2020-11-18] MEDS: Ipratropium/Albuterol Neb 3 ML IH PRN (07:42)
[2020-11-18 08:40] LABS: Basophils % 0.1 %; Hematocrit 42.5 % (37.5-50.1); Hemoglobin 14.2 g/dL (12.9-16.9); Immature Granulocytes % 0.6 % (0-4); Lymphocytes # 0.4 K/mcL (0.6-4.6); Lymphocytes % 2.6 %; Mean Corpuscular HGB Conc 33.4 g/dL (31.6-35.5); Mean Corpuscular Hemoglobin 30.3 pg (28.0-33.3); Mean Corpuscular Volume 90.8 fL (83.0-100.0); Mean Platelet Volume 11.4 fL (9.4-12.4); Monocytes # 0.5 K/mcL (0.0-1.3); Monocytes % 3.2 %; Neutrophils # 14.1 K/mcL (1.6-8.9); Platelet Count 203 K/mcL (140-400); Red Blood Count 4.68 M/mcL (4.19-5.50); Red Cell Distribution Width 13.2 % (11.5-14.5); Segmented Neutrophils % 93.5 %
[2020-11-18] MEDS: Metoprolol XL (24 HR) Succ 50 MG TAB.ER.24H PO SCH (09:03)
[2020-11-18] MEDS: Loratadine 10 MG TABLET PO SCH (09:03)
[2020-11-18] MEDS: DilTIAZem CD (24hr) 180 MG CAP.ER.24H PO SCH (09:03)
[2020-11-18] MEDS: QUEtiapine Fumarate 25 MG TABLET PO SCH ×2 (09:03→20:07)
[2020-11-18] MEDS: dexAMETHasone 4 MG TABLET PO SCH (09:03)
[2020-11-18] MEDS: Furosemide 40 MG/4 ML VIAL IVP SCH (09:04)
[2020-11-18 09:05] LABS: BUN/Creatinine Ratio 49 (6-26); Blood Urea Nitrogen 63 mg/dL (8-23); Calcium 9.7 mg/dL (8.6-10.3); Carbon Dioxide 23 mEq/L (23-29); Chloride 109 mEq/L (98-107); Glucose 135 mg/dL (70-105); Magnesium 2.2 mg/dL (1.6-2.6); Osmolality,Calculated 306 (280-300); Potassium 4.4 mEq/L (3.5-5.1); Sodium 138 mEq/L (136-145); eGFR For African Americans > 60 (> 60); eGFR For Non-African Americans 54 (> 60)
[2020-11-18] MEDS: Heparin 25,000UNIT/250ML 1/2NS 25,000 UNIT/250 ML IV.SOLN IVC SCH (09:10)
[2020-11-18] MEDS: Ipratropium 1 PUFF INHALER IH SCH ×3 (11:43→20:48)
[2020-11-18] MEDS: Levalbuterol 1 PUFF INHALER IH SCH ×3 (11:44→20:48)
[2020-11-18] MEDS: Fluconazole 200 MG/100 ML 200 MG/100 ML BAG IVPB SCH (12:05)
[2020-11-18] MEDS: Magic Mouthwash 10 ML UD Cup PO SCH ×2 (12:05→17:20)
[2020-11-18] MEDS: Acyclovir 500 MG in D5% in Water 100 ML IVPB SCH (15:13)
[2020-11-18 21:55] LABS: Bacteria,Urine Few per hpf (None-Few); Bilirubin,Urine Negative (Negative); Blood,Urine Negative (Negative); Clarity,Urine Clear (Clear); Color,Urine Yellow (Yellow); Glucose,Urine (UA) Normal (Normal); Ketones,Urine Negative (Negative); Leukocyte Esterase,Urine Negative (Negative); Mucus,Urine Few per lpf (None-Few); Nitrite,Urine Negative (Negative); Protein,Urine 50 mg/dL (Neg-Trace); RBC,Urine 0-3 per hpf (0-3); Specific Gravity,Urine > 1.030 (1.010-1.025); Squamous Epithelial Cell,Urine Few per hpf (None-Few); Urobilinogen,Urine Normal (Normal)
[2020-11-18] MEDS: Haloperidol Lactate 5 MG/ML VIAL IVP PRN (23:07)
[2020-11-18] MEDS: Melatonin 3 MG TABLET PO PRN (23:08)
[2020-11-19] MEDS: Acyclovir 500 MG in D5% in Water 100 ML IVPB SCH ×4 (02:00→23:32)
[2020-11-19] MEDS: *HR* Metoprolol 5 MG/5 ML VIAL IVP PRN ×2 (02:00→09:27)
[2020-11-19] MEDS: QUEtiapine Fumarate 25 MG TABLET PO SCH ×3 (02:00→19:48)
[2020-11-19] MEDS: Ipratropium 1 PUFF INHALER IH SCH ×4 (03:45→21:01)
[2020-11-19] MEDS: Levalbuterol 1 PUFF INHALER IH SCH ×4 (03:45→21:01)
[2020-11-19] MEDS ORDERED: *HR* Enoxaparin 30 MG/0.3 ML SYRINGE SQ SCH (07:00)
[2020-11-19] MEDS: Magic Mouthwash 10 ML UD Cup PO SCH ×3 (08:54→16:09)
[2020-11-19] MEDS: Loratadine 10 MG TABLET PO SCH (09:28)
[2020-11-19] MEDS: Fluconazole 200 MG/100 ML 200 MG/100 ML BAG IVPB SCH (09:28)
[2020-11-19] MEDS: DilTIAZem CD (24hr) 180 MG CAP.ER.24H PO SCH (09:29)
[2020-11-19] MEDS: Furosemide 40 MG/4 ML VIAL IVP SCH (09:29)
[2020-11-19] MEDS: dexAMETHasone 4 MG TABLET PO SCH (09:29)
[2020-11-19] MEDS: Metoprolol XL (24 HR) Succ 50 MG TAB.ER.24H PO SCH (09:29)
[2020-11-19 14:30] LABS: Basophils % 0.1 %; Hematocrit 41.8 % (37.5-50.1); Hemoglobin 14.3 g/dL (12.9-16.9); Immature Granulocytes % 0.5 % (0-4); Lymphocytes # 0.2 K/mcL (0.6-4.6); Lymphocytes % 1.6 %; Mean Corpuscular HGB Conc 34.2 g/dL (31.6-35.5); Mean Corpuscular Hemoglobin 31.2 pg (28.0-33.3); Mean Corpuscular Volume 91.1 fL (83.0-100.0); Mean Platelet Volume 11.8 fL (9.4-12.4); Monocytes # 0.6 K/mcL (0.0-1.3); Monocytes % 3.8 %; Neutrophils # 14.5 K/mcL (1.6-8.9); Platelet Count 181 K/mcL (140-400); Red Blood Count 4.59 M/mcL (4.19-5.50); Red Cell Distribution Width 13.1 % (11.5-14.5); White Blood Count 15.5 K/mcL (4.3-11.1)
[2020-11-19 14:31] LABS: Fibrinogen 346 mg/dL (169-393)
[2020-11-19 14:32] LABS: Calcium 9.7 mg/dL (8.6-10.3); Magnesium 2.2 mg/dL (1.6-2.6); Potassium 4.1 mEq/L (3.5-5.1)
[2020-11-19 14:42] LABS: D-Dimer 3626 ng/mLFEU (0-500)
[2020-11-20] MEDS: Haloperidol Lactate 5 MG/ML VIAL IVP PRN (04:27)
[2020-11-20] MEDS: Ipratropium 1 PUFF INHALER IH SCH ×4 (04:46→21:09)
[2020-11-20] MEDS: Levalbuterol 1 PUFF INHALER IH SCH ×4 (04:46→21:10)
[2020-11-20] MEDS: *HR* Enoxaparin 40 MG/0.4 ML SYRINGE SQ SCH (05:13)
[2020-11-20 06:09] LABS: Basophils % 0.1 %; Hematocrit 38.8 % (37.5-50.1); Hemoglobin 13.6 g/dL (12.9-16.9); Immature Granulocytes % 0.3 % (0-4); Lymphocytes # 0.2 K/mcL (0.6-4.6); Lymphocytes % 1.6 %; Mean Corpuscular HGB Conc 35.1 g/dL (31.6-35.5); Mean Corpuscular Hemoglobin 31.3 pg (28.0-33.3); Mean Corpuscular Volume 89.4 fL (83.0-100.0); Mean Platelet Volume 11.5 fL (9.4-12.4); Monocytes # 0.4 K/mcL (0.0-1.3); Neutrophils # 11.6 K/mcL (1.6-8.9); Platelet Count 160 K/mcL (140-400); Red Blood Count 4.34 M/mcL (4.19-5.50); Red Cell Distribution Width 12.8 % (11.5-14.5); White Blood Count 12.2 K/mcL (4.3-11.1)
[2020-11-20 06:18] LABS: Fibrinogen 341 mg/dL (169-393)
[2020-11-20 06:19] LABS: D-Dimer 3406 ng/mLFEU (0-500)
[2020-11-20 06:24] LABS: Calcium 9.2 mg/dL (8.6-10.3); Magnesium 2.2 mg/dL (1.6-2.6); Potassium 4.2 mEq/L (3.5-5.1)
[2020-11-20 06:26] LABS: Platelet Estimate Normal (Normal)
[2020-11-20] MEDS: Metoprolol XL (24 HR) Succ 50 MG TAB.ER.24H PO SCH (09:34)
[2020-11-20] MEDS: dexAMETHasone 4 MG TABLET PO SCH (09:34)
[2020-11-20] MEDS: QUEtiapine Fumarate 25 MG TABLET PO SCH ×2 (09:34→21:10)
[2020-11-20] MEDS: DilTIAZem CD (24hr) 180 MG CAP.ER.24H PO SCH (09:34)
[2020-11-20] MEDS: Magic Mouthwash 10 ML UD Cup PO SCH ×3 (09:35→15:49)
[2020-11-20] MEDS: Loratadine 10 MG TABLET PO SCH (09:35)
[2020-11-20] MEDS: Fluconazole 200 MG/100 ML 200 MG/100 ML BAG IVPB SCH (09:35)
[2020-11-20] MEDS: *HR* Metoprolol 5 MG/5 ML VIAL IVP PRN ×2 (09:38→12:52)
[2020-11-20] MEDS: Acyclovir 500 MG in D5% in Water 100 ML IVPB SCH ×2 (09:38→15:49)
[2020-11-21] MEDS: Acyclovir 500 MG in D5% in Water 100 ML IVPB SCH ×3 (00:10→18:11)
[2020-11-21] MEDS: *HR* Metoprolol 5 MG/5 ML VIAL IVP PRN (01:25)
[2020-11-21] MEDS: Dexmedetomidine HCl 400 MCG/100 ML MLS IVC SCH ×3 (03:35→13:11)
[2020-11-21] MEDS: Ipratropium 1 PUFF INHALER IH SCH ×4 (03:41→21:05)
[2020-11-21] MEDS: Levalbuterol 1 PUFF INHALER IH SCH ×4 (03:41→21:05)
[2020-11-21 05:16] LABS: Basophils % 0.1 %; Hematocrit 37.5 % (37.5-50.1); Immature Granulocytes % 0.4 % (0-4); Lymphocytes # 0.2 K/mcL (0.6-4.6); Mean Corpuscular HGB Conc 34.7 g/dL (31.6-35.5); Mean Corpuscular Hemoglobin 31.3 pg (28.0-33.3); Mean Corpuscular Volume 90.1 fL (83.0-100.0); Mean Platelet Volume 11.9 fL (9.4-12.4); Monocytes # 0.3 K/mcL (0.0-1.3); Monocytes % 3.1 %; Platelet Count 146 K/mcL (140-400); Red Blood Count 4.16 M/mcL (4.19-5.50); Red Cell Distribution Width 12.8 % (11.5-14.5); Segmented Neutrophils % 94.4 %; White Blood Count 10.6 K/mcL (4.3-11.1)
[2020-11-21 05:26] LABS: Albumin 2.6 g/dL (3.5-5.7); Albumin/Globulin Ratio 0.8 (1.1-2.2); Bilirubin,Direct 0.2 mg/dL (0.0-0.2); Bilirubin,Indirect 0.7 mg/dL (0.0-1.0); Bilirubin,Total 0.9 mg/dL (0.3-1.0); Globulin 3.1 g/dL (2.4-3.5); Magnesium 2.1 mg/dL (1.6-2.6); Potassium 4.6 mEq/L (3.5-5.1); Total Protein 5.7 g/dL (6.4-8.9)
[2020-11-21] MEDS: Magic Mouthwash 10 ML UD Cup PO SCH ×3 (06:18→16:00)
[2020-11-21] MEDS: *HR* Enoxaparin 40 MG/0.4 ML SYRINGE SQ SCH (06:18)
[2020-11-21] MEDS: QUEtiapine Fumarate 25 MG TABLET PO SCH ×2 (08:41→20:49)
[2020-11-21] MEDS: DilTIAZem CD (24hr) 180 MG CAP.ER.24H PO SCH (08:44)
[2020-11-21] MEDS: dexAMETHasone 4 MG TABLET PO SCH (08:44)
[2020-11-21] MEDS: Fluconazole 200 MG/100 ML 200 MG/100 ML BAG IVPB SCH (08:44)
[2020-11-21] MEDS: Loratadine 10 MG TABLET PO SCH (08:44)
[2020-11-21] MEDS: Metoprolol XL (24 HR) Succ 50 MG TAB.ER.24H PO SCH (08:44)
[2020-11-22 03:55] LABS: Mean Corpuscular Volume 88.9 fL (83.0-100.0); Mean Platelet Volume 11.4 fL (9.4-12.4); Red Cell Distribution Width 12.7 % (11.5-14.5); White Blood Count 9.4 K/mcL (4.3-11.1)
[2020-11-22 03:57] LABS: Basophils % 0.1 %; Hemoglobin 12.8 g/dL (12.9-16.9); Immature Granulocytes % 0.3 % (0-4); Immature Platelets 5.7 % (1.1-6.1); Lymphocytes # 0.2 K/mcL (0.6-4.6); Lymphocytes % 2.5 %; Mean Corpuscular HGB Conc 34.6 g/dL (31.6-35.5); Mean Corpuscular Hemoglobin 30.8 pg (28.0-33.3); Monocytes # 0.3 K/mcL (0.0-1.3); Monocytes % 3.3 %; Neutrophils # 8.8 K/mcL (1.6-8.9); Platelet Count 133 K/mcL (140-400); Red Blood Count 4.16 M/mcL (4.19-5.50); Segmented Neutrophils % 93.8 %
[2020-11-22] MEDS: Ipratropium 1 PUFF INHALER IH SCH ×4 (04:15→22:57)
[2020-11-22] MEDS: Levalbuterol 1 PUFF INHALER IH SCH ×4 (04:15→22:57)
[2020-11-22 04:18] LABS: BUN/Creatinine Ratio 48 (6-26); Blood Urea Nitrogen 59 mg/dL (8-23); Calcium 8.9 mg/dL (8.6-10.3); Carbon Dioxide 20 mEq/L (23-29); Chloride 108 mEq/L (98-107); Glucose 114 mg/dL (70-105); Osmolality,Calculated 293 (280-300); Potassium 4.6 mEq/L (3.5-5.1); Sodium 133 mEq/L (136-145); eGFR For African Americans > 60 (> 60); eGFR For Non-African Americans 57 (> 60)
[2020-11-22] MEDS: *HR* Enoxaparin 40 MG/0.4 ML SYRINGE SQ SCH (05:50)
[2020-11-22] MEDS: dexAMETHasone 4 MG TABLET PO SCH (09:09)
[2020-11-22] MEDS: Metoprolol XL (24 HR) Succ 50 MG TAB.ER.24H PO SCH (09:09)
[2020-11-22] MEDS: DilTIAZem CD (24hr) 180 MG CAP.ER.24H PO SCH (09:09)
[2020-11-22] MEDS: Magic Mouthwash 10 ML UD Cup PO SCH ×3 (09:10→16:37)
[2020-11-22] MEDS: QUEtiapine Fumarate 25 MG TABLET PO SCH ×2 (09:10→19:57)
[2020-11-22] MEDS: Loratadine 10 MG TABLET PO SCH (09:10)
[2020-11-22] MEDS: Dexmedetomidine HCl 400 MCG/100 ML MLS IVC SCH (12:19)
[2020-11-23 04:30] LABS: BUN/Creatinine Ratio 38 (6-26); Blood Urea Nitrogen 46 mg/dL (8-23); Calcium 8.6 mg/dL (8.6-10.3); Carbon Dioxide 33 mEq/L (23-29); Chloride 98 mEq/L (98-107); Glucose 161 mg/dL (70-105); Magnesium 2.1 mg/dL (1.6-2.6); Osmolality,Calculated 303 (280-300); Potassium 3.8 mEq/L (3.5-5.1); Sodium 139 mEq/L (136-145); eGFR For African Americans > 60 (> 60); eGFR For Non-African Americans 58 (> 60)
[2020-11-23] MEDS: Ipratropium 1 PUFF INHALER IH SCH ×4 (04:33→21:21)
[2020-11-23] MEDS: Levalbuterol 1 PUFF INHALER IH SCH ×4 (04:33→21:21)
[2020-11-23] MEDS: *HR* HYDROmorphone 2 MG/ML SYRINGE IVP PRN (05:06)
[2020-11-23] MEDS: *HR* Enoxaparin 40 MG/0.4 ML SYRINGE SQ SCH (05:07)
[2020-11-23] MEDS: QUEtiapine Fumarate 25 MG TABLET PO SCH ×2 (08:38→20:16)
[2020-11-23] MEDS: DilTIAZem CD (24hr) 180 MG CAP.ER.24H PO SCH (08:38)
[2020-11-23] MEDS: Metoprolol XL (24 HR) Succ 50 MG TAB.ER.24H PO SCH (08:39)
[2020-11-23] MEDS: Magic Mouthwash 10 ML UD Cup PO SCH ×3 (08:39→16:27)
[2020-11-23] MEDS: Loratadine 10 MG TABLET PO SCH (08:39)
[2020-11-23] MEDS: dexAMETHasone 4 MG TABLET PO SCH (08:39)
[2020-11-23] MEDS: *HR* Metoprolol 5 MG/5 ML VIAL IVP PRN (11:04)
[2020-11-23 15:34] LABS: Hematocrit 41.1 % (37.5-50.1); Hemoglobin 13.7 g/dL (12.9-16.9); Lymphocytes # 0.2 K/mcL (0.6-4.6); Mean Corpuscular HGB Conc 33.3 g/dL (31.6-35.5); Mean Corpuscular Hemoglobin 30.6 pg (28.0-33.3); Mean Platelet Volume 11.3 fL (9.4-12.4); Platelet Count 141 K/mcL (140-400); Red Blood Count 4.48 M/mcL (4.19-5.50)
[2020-11-23 15:36] LABS: Mean Corpuscular Volume 91.7 fL (83.0-100.0); White Blood Count 11.4 K/mcL (4.3-11.1)
[2020-11-23] MEDS: Dexmedetomidine HCl 400 MCG/100 ML MLS IVC SCH (16:27)
[2020-11-23] MEDS: Melatonin 3 MG TABLET PO PRN (20:16)
[2020-11-23 20:20] LABS: Neutrophils # 11.2 K/mcL (1.6-8.9)
[2020-11-23 20:21] LABS: Platelet Estimate Normal (Normal)
[2020-11-24 02:40] LABS: Hematocrit 38.4 % (37.5-50.1); Hemoglobin 13.1 g/dL (12.9-16.9); Immature Granulocytes % 0.7 % (0-4); Lymphocytes # 0.2 K/mcL (0.6-4.6); Mean Corpuscular HGB Conc 34.1 g/dL (31.6-35.5); Mean Corpuscular Volume 90.8 fL (83.0-100.0); Mean Platelet Volume 11.6 fL (9.4-12.4); Monocytes # 0.3 K/mcL (0.0-1.3); Monocytes % 2.8 %; Neutrophils # 9.1 K/mcL (1.6-8.9); Platelet Count 137 K/mcL (140-400); Red Blood Count 4.23 M/mcL (4.19-5.50); Red Cell Distribution Width 12.9 % (11.5-14.5); Segmented Neutrophils % 94.6 %; White Blood Count 9.6 K/mcL (4.3-11.1)
[2020-11-24 02:56] LABS: BUN/Creatinine Ratio 43 (6-26); Blood Urea Nitrogen 57 mg/dL (8-23); Carbon Dioxide 19 mEq/L (23-29); Chloride 108 mEq/L (98-107); Glucose 158 mg/dL (70-105); Osmolality,Calculated 295 (280-300); Potassium 4.8 mEq/L (3.5-5.1); Sodium 133 mEq/L (136-145); eGFR For African Americans > 60 (> 60); eGFR For Non-African Americans 51 (> 60)
[2020-11-24] MEDS: Ipratropium 1 PUFF INHALER IH SCH ×4 (03:56→22:43)
[2020-11-24] MEDS: Levalbuterol 1 PUFF INHALER IH SCH ×4 (03:56→22:43)
[2020-11-24 04:16] LABS: Lymphocytes % 1.9 %
[2020-11-24] MEDS: *HR* Enoxaparin 40 MG/0.4 ML SYRINGE SQ SCH (06:05)
[2020-11-24] MEDS: Magic Mouthwash 10 ML UD Cup PO SCH ×3 (08:15→16:44)
[2020-11-24] MEDS: Metoprolol XL (24 HR) Succ 50 MG TAB.ER.24H PO SCH (08:18)
[2020-11-24] MEDS: QUEtiapine Fumarate 25 MG TABLET PO SCH ×2 (08:18→20:43)
[2020-11-24] MEDS: Loratadine 10 MG TABLET PO SCH (08:18)
[2020-11-24] MEDS: dexAMETHasone 4 MG TABLET PO SCH (08:18)
[2020-11-24] MEDS: DilTIAZem CD (24hr) 180 MG CAP.ER.24H PO SCH (08:18)
[2020-11-24] MEDS: Dexmedetomidine HCl 400 MCG/100 ML MLS IVC SCH (19:31)
[2020-11-25] MEDS: Melatonin 3 MG TABLET PO PRN (01:14)
[2020-11-25 02:27] LABS: Basophils % 0.1 %; Hemoglobin 13.4 g/dL (12.9-16.9); Immature Granulocytes % 0.9 % (0-4); Lymphocytes # 0.2 K/mcL (0.6-4.6); Lymphocytes % 2.1 %; Mean Corpuscular HGB Conc 34.4 g/dL (31.6-35.5); Mean Corpuscular Hemoglobin 30.9 pg (28.0-33.3); Mean Corpuscular Volume 90.1 fL (83.0-100.0); Mean Platelet Volume 11.2 fL (9.4-12.4); Monocytes # 0.3 K/mcL (0.0-1.3); Monocytes % 3.2 %; Platelet Count 144 K/mcL (140-400); Red Blood Count 4.33 M/mcL (4.19-5.50); Red Cell Distribution Width 13.1 % (11.5-14.5); Segmented Neutrophils % 93.7 %; White Blood Count 9.1 K/mcL (4.3-11.1)
[2020-11-25 02:32] LABS: Neutrophils # 8.5 K/mcL (1.6-8.9)
[2020-11-25 02:43] LABS: BUN/Creatinine Ratio 45 (6-26); Blood Urea Nitrogen 48 mg/dL (8-23); Calcium 9.2 mg/dL (8.6-10.3); Carbon Dioxide 17 mEq/L (23-29); Chloride 110 mEq/L (98-107); Glucose 124 mg/dL (70-105); Magnesium 1.9 mg/dL (1.6-2.6); Osmolality,Calculated 292 (280-300); Potassium 4.7 mEq/L (3.5-5.1); Sodium 134 mEq/L (136-145); eGFR For African Americans > 60 (> 60); eGFR For Non-African Americans > 60 (> 60)
[2020-11-25] MEDS: Levalbuterol 1 PUFF INHALER IH SCH ×4 (04:06→22:37)
[2020-11-25] MEDS: Ipratropium 1 PUFF INHALER IH SCH ×4 (04:06→22:38)
[2020-11-25] MEDS: *HR* Enoxaparin 40 MG/0.4 ML SYRINGE SQ SCH (05:30)
[2020-11-25] MEDS: Loratadine 10 MG TABLET PO SCH (07:44)
[2020-11-25] MEDS: Metoprolol XL (24 HR) Succ 50 MG TAB.ER.24H PO SCH (07:44)
[2020-11-25] MEDS: QUEtiapine Fumarate 25 MG TABLET PO SCH ×2 (07:44→20:47)
[2020-11-25] MEDS: DilTIAZem CD (24hr) 180 MG CAP.ER.24H PO SCH (07:44)
[2020-11-25] MEDS: dexAMETHasone 4 MG TABLET PO SCH (07:44)
[2020-11-25] MEDS: Magic Mouthwash 10 ML UD Cup PO SCH ×3 (07:46→17:28)
[2020-11-25] MEDS ORDERED: Trolamine Salicylate/Aloe Vera 85 APPL/85 GM TUBE TP PRN (13:01)
[2020-11-25] MEDS: Acetaminophen 325 MG TABLET PO PRN (17:28)
[2020-11-26] MEDS: Ipratropium 1 PUFF INHALER IH SCH ×4 (03:41→23:08)
[2020-11-26] MEDS: Levalbuterol 1 PUFF INHALER IH SCH ×4 (03:41→23:08)
[2020-11-26] MEDS: Acetaminophen 325 MG TABLET PO PRN ×2 (04:41→20:03)
[2020-11-26] MEDS: *HR* Enoxaparin 40 MG/0.4 ML SYRINGE SQ SCH (04:48)
[2020-11-26] MEDS: DilTIAZem CD (24hr) 180 MG CAP.ER.24H PO SCH (09:24)
[2020-11-26] MEDS: QUEtiapine Fumarate 25 MG TABLET PO SCH ×2 (09:24→20:03)
[2020-11-26] MEDS: dexAMETHasone 4 MG TABLET PO SCH (09:24)
[2020-11-26] MEDS: Metoprolol XL (24 HR) Succ 50 MG TAB.ER.24H PO SCH (09:24)
[2020-11-26] MEDS: Magic Mouthwash 10 ML UD Cup PO SCH ×3 (09:24→18:23)
[2020-11-26] MEDS: Loratadine 10 MG TABLET PO SCH (09:25)
[2020-11-26] MEDS: Methyl Salicylate/Menthol 85 APPL/85 GM TUBE TP PRN (18:34)
[2020-11-27] MEDS: Ipratropium 1 PUFF INHALER IH SCH ×4 (04:18→22:37)
[2020-11-27] MEDS: Levalbuterol 1 PUFF INHALER IH SCH ×4 (04:19→22:37)
[2020-11-27] MEDS: *HR* Enoxaparin 40 MG/0.4 ML SYRINGE SQ SCH (05:32)
[2020-11-27 05:40] LABS: Hemoglobin 13.4 g/dL (12.9-16.9); Mean Corpuscular HGB Conc 35.3 g/dL (31.6-35.5); Mean Corpuscular Hemoglobin 31.4 pg (28.0-33.3); Platelet Count 157 K/mcL (140-400); Red Blood Count 4.27 M/mcL (4.19-5.50); Red Cell Distribution Width 13.3 % (11.5-14.5); White Blood Count 10.4 K/mcL (4.3-11.1)
[2020-11-27 06:04] LABS: BUN/Creatinine Ratio 45 (6-26); Blood Urea Nitrogen 51 mg/dL (8-23); Calcium 9.3 mg/dL (8.6-10.3); Carbon Dioxide 18 mEq/L (23-29); Chloride 109 mEq/L (98-107); Glucose 104 mg/dL (70-105); Magnesium 1.8 mg/dL (1.6-2.6); Osmolality,Calculated 290 (280-300); Potassium 4.8 mEq/L (3.5-5.1); Sodium 133 mEq/L (136-145); eGFR For African Americans > 60 (> 60); eGFR For Non-African Americans > 60 (> 60)
[2020-11-27] MEDS: Loratadine 10 MG TABLET PO SCH (08:50)
[2020-11-27] MEDS: Metoprolol XL (24 HR) Succ 50 MG TAB.ER.24H PO SCH (08:50)
[2020-11-27] MEDS: QUEtiapine Fumarate 25 MG TABLET PO SCH ×2 (08:50→21:13)
[2020-11-27] MEDS: dexAMETHasone 4 MG TABLET PO SCH (08:50)
[2020-11-27] MEDS: DilTIAZem CD (24hr) 180 MG CAP.ER.24H PO SCH (08:50)
[2020-11-27] MEDS: Magic Mouthwash 10 ML UD Cup PO SCH ×3 (08:56→17:45)
[2020-11-27] MEDS: Dexmedetomidine HCl 400 MCG/100 ML MLS IVC SCH (10:23)
[2020-11-27] MEDS: Acetaminophen 325 MG TABLET PO PRN (21:13)
[2020-11-27] MEDS: Melatonin 3 MG TABLET PO PRN (21:14)
[2020-11-27] MEDS: Methyl Salicylate/Menthol 85 APPL/85 GM TUBE TP PRN (21:14)
[2020-11-28] MEDS: Levalbuterol 1 PUFF INHALER IH SCH ×4 (04:20→22:18)
[2020-11-28] MEDS: Ipratropium 1 PUFF INHALER IH SCH ×4 (04:21→22:20)
[2020-11-28] MEDS: *HR* Enoxaparin 40 MG/0.4 ML SYRINGE SQ SCH (05:08)
[2020-11-28] MEDS: Magic Mouthwash 10 ML UD Cup PO SCH ×3 (08:45→17:46)
[2020-11-28] MEDS: Metoprolol XL (24 HR) Succ 50 MG TAB.ER.24H PO SCH (08:45)
[2020-11-28] MEDS: dexAMETHasone 4 MG TABLET PO SCH (08:45)
[2020-11-28] MEDS: DilTIAZem CD (24hr) 180 MG CAP.ER.24H PO SCH (08:45)
[2020-11-28] MEDS: Loratadine 10 MG TABLET PO SCH (08:46)
[2020-11-28] MEDS: QUEtiapine Fumarate 25 MG TABLET PO SCH ×2 (08:46→21:26)
[2020-11-28] MEDS: Melatonin 3 MG TABLET PO PRN (21:26)
[2020-11-28] MEDS: Acetaminophen 325 MG TABLET PO PRN (21:27)
[2020-11-29] MEDS: Ipratropium 1 PUFF INHALER IH SCH ×4 (04:40→22:36)
[2020-11-29] MEDS: Levalbuterol 1 PUFF INHALER IH SCH ×4 (04:41→22:36)
[2020-11-29] MEDS: *HR* Enoxaparin 40 MG/0.4 ML SYRINGE SQ SCH (05:40)
[2020-11-29] MEDS: DilTIAZem CD (24hr) 180 MG CAP.ER.24H PO SCH (07:44)
[2020-11-29] MEDS: Loratadine 10 MG TABLET PO SCH (07:44)
[2020-11-29] MEDS: dexAMETHasone 4 MG TABLET PO SCH (07:45)
[2020-11-29] MEDS: Metoprolol XL (24 HR) Succ 50 MG TAB.ER.24H PO SCH (07:45)
[2020-11-29] MEDS: QUEtiapine Fumarate 25 MG TABLET PO SCH ×2 (07:45→21:02)
[2020-11-29] MEDS: Magic Mouthwash 10 ML UD Cup PO SCH ×3 (07:45→16:31)
[2020-11-29] MEDS: Melatonin 3 MG TABLET PO PRN (21:01)
[2020-11-29] MEDS: Acetaminophen 325 MG TABLET PO PRN (21:02)
[2020-11-30 02:45] LABS: Hematocrit 34.1 % (37.5-50.1); Hemoglobin 11.8 g/dL (12.9-16.9); Mean Corpuscular HGB Conc 34.6 g/dL (31.6-35.5); Mean Corpuscular Hemoglobin 31.7 pg (28.0-33.3); Mean Corpuscular Volume 91.7 fL (83.0-100.0); Mean Platelet Volume 10.5 fL (9.4-12.4); Platelet Count 157 K/mcL (140-400); Red Blood Count 3.72 M/mcL (4.19-5.50); Red Cell Distribution Width 13.9 % (11.5-14.5); White Blood Count 11.7 K/mcL (4.3-11.1)
[2020-11-30 03:04] LABS: BUN/Creatinine Ratio 47 (6-26); Blood Urea Nitrogen 57 mg/dL (8-23); Calcium 8.8 mg/dL (8.6-10.3); Carbon Dioxide 16 mEq/L (23-29); Chloride 110 mEq/L (98-107); Glucose 133 mg/dL (70-105); Magnesium 1.9 mg/dL (1.6-2.6); Osmolality,Calculated 292 (280-300); Potassium 4.5 mEq/L (3.5-5.1); Sodium 132 mEq/L (136-145); eGFR For African Americans > 60 (> 60); eGFR For Non-African Americans 58 (> 60)
[2020-11-30] MEDS: Ipratropium 1 PUFF INHALER IH SCH ×3 (03:56→16:34)
[2020-11-30] MEDS: Levalbuterol 1 PUFF INHALER IH SCH ×3 (03:56→16:34)
[2020-11-30] MEDS: *HR* Enoxaparin 40 MG/0.4 ML SYRINGE SQ SCH (05:26)
[2020-11-30] MEDS: DilTIAZem CD (24hr) 180 MG CAP.ER.24H PO SCH (08:22)
[2020-11-30] MEDS: dexAMETHasone 4 MG TABLET PO SCH (08:22)
[2020-11-30] MEDS: QUEtiapine Fumarate 25 MG TABLET PO SCH ×2 (08:22→19:57)
[2020-11-30] MEDS: Metoprolol XL (24 HR) Succ 50 MG TAB.ER.24H PO SCH (08:22)
[2020-11-30] MEDS: Magic Mouthwash 10 ML UD Cup PO SCH ×3 (08:22→15:59)
[2020-11-30] MEDS: Loratadine 10 MG TABLET PO SCH (08:22)
[2020-11-30] MEDS: Saliva Stimulant 44.3ml BOTTLE PO SCH ×4 (15:55→21:56)
[2020-11-30] MEDS: Saline Nasal Spray 44 ML BOTTLE NS SCH ×2 (15:56→20:03)
[2020-11-30] MEDS ORDERED: *HR* Metoprolol 5 MG/5 ML VIAL IVP PRN (16:29)
[2020-11-30] MEDS ORDERED: Ipratropium Neb 0.5 MG NEBULIZER ONE (19:39)
[2020-11-30] MEDS ORDERED: Levalbuterol Neb 0.63 MG/3 ML ONE (19:39)
[2020-11-30] MEDS ORDERED: Levalbuterol Neb 1.25 MG/3 ML ONE (19:40)
[2020-11-30] MEDS: Chlorhexidine Rinse 15 ML MOUTHWASH MM SCH (19:57)
[2020-11-30] MEDS: Artificial Tears SOLN 15 ML BOTTLE BOTH EYES SCH (19:57)
[2020-11-30] MEDS: Acetaminophen 325 MG TABLET PO PRN (20:02)
[2020-11-30] MEDS: Melatonin 3 MG TABLET PO PRN (20:02)
[2020-11-30] MEDS: Levalbuterol Neb 1.25 MG/3 ML IH SCH (21:01)
[2020-11-30] MEDS: Ipratropium Neb 0.5 MG NEBULIZER IH SCH (21:01)
[2020-12-01] MEDS: Levalbuterol Neb 1.25 MG/3 ML IH SCH ×4 (04:21→21:36)
[2020-12-01] MEDS: Ipratropium Neb 0.5 MG NEBULIZER IH SCH ×4 (04:21→21:36)
[2020-12-01] MEDS: Saliva Stimulant 44.3ml BOTTLE PO SCH ×13 (04:35→23:23)
[2020-12-01] MEDS: Saline Nasal Spray 44 ML BOTTLE NS SCH ×6 (04:37→23:24)
[2020-12-01 04:42] LABS: VBG HCO3 18 mEq/L (21-27); VBG PCO2 33 mmHg (41-51); VBG PH 7.36 pH Units (7.32-7.42); VBG PO2 48 mmHg (25-50)
[2020-12-01] MEDS: *HR* Enoxaparin 40 MG/0.4 ML SYRINGE SQ SCH (04:54)
[2020-12-01 05:03] LABS: BUN/Creatinine Ratio 47 (6-26); Blood Urea Nitrogen 57 mg/dL (8-23); Calcium 9.1 mg/dL (8.6-10.3); Carbon Dioxide 18 mEq/L (23-29); Chloride 110 mEq/L (98-107); Glucose 152 mg/dL (70-105); Osmolality,Calculated 297 (280-300); Potassium 4.4 mEq/L (3.5-5.1); Sodium 134 mEq/L (136-145); eGFR For African Americans > 60 (> 60); eGFR For Non-African Americans 57 (> 60)
[2020-12-01] MEDS: Loratadine 10 MG TABLET PO SCH (08:44)
[2020-12-01] MEDS: QUEtiapine Fumarate 25 MG TABLET PO SCH ×2 (08:44→21:14)
[2020-12-01] MEDS: Metoprolol XL (24 HR) Succ 50 MG TAB.ER.24H PO SCH (08:44)
[2020-12-01] MEDS: DilTIAZem CD (24hr) 180 MG CAP.ER.24H PO SCH (08:45)
[2020-12-01] MEDS: Magic Mouthwash 10 ML UD Cup PO SCH ×3 (08:45→16:57)
[2020-12-01] MEDS: Chlorhexidine Rinse 15 ML MOUTHWASH MM SCH ×2 (08:45→21:14)
[2020-12-01] MEDS: Artificial Tears SOLN 15 ML BOTTLE BOTH EYES SCH ×2 (09:15→21:15)
[2020-12-01] MEDS: Fluconazole 100 MG TABLET PO SCH (16:41)
[2020-12-01] MEDS: Acetaminophen 325 MG TABLET PO PRN (21:14)
[2020-12-01] MEDS: Melatonin 3 MG TABLET PO PRN (21:14)
[2020-12-02] MEDS: Saliva Stimulant 44.3ml BOTTLE PO SCH ×11 (01:27→23:02)
[2020-12-02] MEDS: Saline Nasal Spray 44 ML BOTTLE NS SCH ×5 (03:45→20:31)
[2020-12-02] MEDS: Levalbuterol Neb 1.25 MG/3 ML IH SCH ×4 (04:12→21:51)
[2020-12-02] MEDS: Ipratropium Neb 0.5 MG NEBULIZER IH SCH ×4 (04:12→21:51)
[2020-12-02] MEDS: *HR* Enoxaparin 40 MG/0.4 ML SYRINGE SQ SCH (05:54)
[2020-12-02] MEDS: Chlorhexidine Rinse 15 ML MOUTHWASH MM SCH ×2 (08:24→20:31)
[2020-12-02] MEDS: Acetaminophen 325 MG TABLET PO PRN ×3 (08:25→22:42)
[2020-12-02] MEDS: Loratadine 10 MG TABLET PO SCH (08:25)
[2020-12-02] MEDS: DilTIAZem CD (24hr) 180 MG CAP.ER.24H PO SCH (08:25)
[2020-12-02] MEDS: QUEtiapine Fumarate 25 MG TABLET PO SCH ×2 (08:25→20:31)
[2020-12-02] MEDS: Fluconazole 100 MG TABLET PO SCH (08:25)
[2020-12-02] MEDS: Metoprolol XL (24 HR) Succ 50 MG TAB.ER.24H PO SCH (08:25)
[2020-12-02] MEDS: Magic Mouthwash 10 ML UD Cup PO SCH ×3 (08:26→16:15)
[2020-12-02] MEDS: Artificial Tears SOLN 15 ML BOTTLE BOTH EYES SCH ×2 (08:27→20:32)
[2020-12-02] MEDS: Methyl Salicylate/Menthol 85 APPL/85 GM TUBE TP PRN (16:07)
[2020-12-02] MEDS: Furosemide 20 MG/2 ML VIAL IVP SCH ×2 (16:09→23:02)
[2020-12-02] MEDS ORDERED: Isovue-370 500 ML BOTTLE IVP ONE (19:03)
[2020-12-02] MEDS: Melatonin 3 MG TABLET PO PRN (20:51)
[2020-12-03] MEDS: Saliva Stimulant 44.3ml BOTTLE PO SCH ×11 (00:50→21:22)
[2020-12-03] MEDS: Saline Nasal Spray 44 ML BOTTLE NS SCH ×6 (00:50→21:22)
[2020-12-03 01:36] LABS: BUN/Creatinine Ratio 48 (6-26); Blood Urea Nitrogen 54 mg/dL (8-23); Calcium 8.9 mg/dL (8.6-10.3); Carbon Dioxide 17 mEq/L (23-29); Chloride 107 mEq/L (98-107); Glucose 162 mg/dL (70-105); Magnesium 1.6 mg/dL (1.6-2.6); Osmolality,Calculated 294 (280-300); Potassium 3.7 mEq/L (3.5-5.1); Sodium 133 mEq/L (136-145); eGFR For African Americans > 60 (> 60); eGFR For Non-African Americans > 60 (> 60)
[2020-12-03] MEDS: Ipratropium Neb 0.5 MG NEBULIZER IH SCH ×4 (04:18→21:58)
[2020-12-03] MEDS: Levalbuterol Neb 1.25 MG/3 ML IH SCH ×4 (04:19→21:59)
[2020-12-03] MEDS: *HR* Enoxaparin 40 MG/0.4 ML SYRINGE SQ SCH (06:14)
[2020-12-03] MEDS: Artificial Tears SOLN 15 ML BOTTLE BOTH EYES SCH ×2 (10:37→21:22)
[2020-12-03] MEDS: Loratadine 10 MG TABLET PO SCH (10:38)
[2020-12-03] MEDS: Furosemide 20 MG/2 ML VIAL IVP SCH ×2 (10:38→21:22)
[2020-12-03] MEDS: Magic Mouthwash 10 ML UD Cup PO SCH ×3 (10:38→17:16)
[2020-12-03] MEDS: Metoprolol XL (24 HR) Succ 50 MG TAB.ER.24H PO SCH (10:38)
[2020-12-03] MEDS: DilTIAZem CD (24hr) 180 MG CAP.ER.24H PO SCH (10:38)
[2020-12-03] MEDS: Chlorhexidine Rinse 15 ML MOUTHWASH MM SCH ×2 (10:38→21:21)
[2020-12-03] MEDS: Fluconazole 100 MG TABLET PO SCH (10:39)
[2020-12-03] MEDS: QUEtiapine Fumarate 25 MG TABLET PO SCH ×2 (10:40→21:21)
[2020-12-03] MEDS: Acetaminophen 325 MG TABLET PO PRN (13:29)
[2020-12-03] MEDS: *HR* Acetylcysteine 20% 600 MG/3 ML ORAL SYRINGE PO SCH (15:29)
[2020-12-03] MEDS: Melatonin 3 MG TABLET PO PRN (21:21)
[2020-12-04] MEDS: Levalbuterol Neb 1.25 MG/3 ML IH SCH ×4 (04:00→21:26)
[2020-12-04] MEDS: Ipratropium Neb 0.5 MG NEBULIZER IH SCH ×4 (04:00→21:26)
[2020-12-04] MEDS: *HR* Enoxaparin 40 MG/0.4 ML SYRINGE SQ SCH (06:53)
[2020-12-04] MEDS: Saline Nasal Spray 44 ML BOTTLE NS SCH ×6 (06:53→23:30)
[2020-12-04] MEDS: Saliva Stimulant 44.3ml BOTTLE PO SCH ×11 (06:54→23:30)
[2020-12-04] MEDS: Acetaminophen 325 MG TABLET PO PRN (09:08)
[2020-12-04] MEDS: Chlorhexidine Rinse 15 ML MOUTHWASH MM SCH ×2 (09:08→21:49)
[2020-12-04] MEDS: DilTIAZem CD (24hr) 180 MG CAP.ER.24H PO SCH (09:09)
[2020-12-04] MEDS: Furosemide 20 MG/2 ML VIAL IVP SCH ×2 (09:09→21:49)
[2020-12-04] MEDS: Loratadine 10 MG TABLET PO SCH (09:09)
[2020-12-04] MEDS: QUEtiapine Fumarate 25 MG TABLET PO SCH ×2 (09:09→21:49)
[2020-12-04] MEDS: Fluconazole 100 MG TABLET PO SCH (09:09)
[2020-12-04] MEDS: Metoprolol XL (24 HR) Succ 50 MG TAB.ER.24H PO SCH (09:09)
[2020-12-04] MEDS: Magic Mouthwash 10 ML UD Cup PO SCH ×3 (09:10→18:52)
[2020-12-04] MEDS: *HR* Acetylcysteine 20% 600 MG/3 ML ORAL SYRINGE PO SCH ×4 (09:11→23:00)
[2020-12-04] MEDS: Artificial Tears SOLN 15 ML BOTTLE BOTH EYES SCH ×2 (09:12→21:48)
[2020-12-05] MEDS: Saliva Stimulant 44.3ml BOTTLE PO SCH ×8 (02:13→22:15)
[2020-12-05] MEDS: Saline Nasal Spray 44 ML BOTTLE NS SCH ×6 (02:14→22:15)
[2020-12-05] MEDS: Ipratropium Neb 0.5 MG NEBULIZER IH SCH ×4 (03:14→22:01)
[2020-12-05] MEDS: Levalbuterol Neb 1.25 MG/3 ML IH SCH ×4 (03:14→22:01)
[2020-12-05] MEDS: *HR* Enoxaparin 40 MG/0.4 ML SYRINGE SQ SCH (05:10)
[2020-12-05] MEDS ORDERED: Metoprolol XL (24 HR) Succ 25 MG TAB.ER.24H PO SCH (08:00)
[2020-12-05] MEDS: Fluconazole 100 MG TABLET PO SCH (08:33)
[2020-12-05] MEDS: QUEtiapine Fumarate 25 MG TABLET PO SCH ×2 (08:34→22:14)
[2020-12-05] MEDS: Chlorhexidine Rinse 15 ML MOUTHWASH MM SCH ×2 (08:34→22:14)
[2020-12-05] MEDS: Magic Mouthwash 10 ML UD Cup PO SCH ×3 (08:34→17:17)
[2020-12-05] MEDS: Loratadine 10 MG TABLET PO SCH (08:34)
[2020-12-05] MEDS: *HR* Acetylcysteine 20% 600 MG/3 ML ORAL SYRINGE PO SCH ×3 (08:34→22:14)
[2020-12-05] MEDS: Artificial Tears SOLN 15 ML BOTTLE BOTH EYES SCH ×2 (08:36→22:23)
[2020-12-05] MEDS: Ciprofloxacin/Dex *EAR* Susp 7.5 ML BOTTLE RIGHT EAR SCH ×2 (13:11→22:16)
[2020-12-05] MEDS: Acetaminophen 325 MG TABLET PO PRN (14:53)
[2020-12-05] MEDS ORDERED: 0.9 % Sodium Chloride 500 ML IVC SCH (17:15)
[2020-12-05 17:40] LABS: Basophils % 0.3 %; Eosinophils # 0.2 K/mcL (0.0-0.6); Eosinophils % 2.9 %; Hematocrit 33.1 % (37.5-50.1); Hemoglobin 11.4 g/dL (12.9-16.9); Immature Granulocytes % 4.6 % (0-4); Lymphocytes # 0.5 K/mcL (0.6-4.6); Lymphocytes % 9.2 %; Mean Corpuscular HGB Conc 34.4 g/dL (31.6-35.5); Mean Corpuscular Hemoglobin 30.9 pg (28.0-33.3); Mean Corpuscular Volume 89.7 fL (83.0-100.0); Mean Platelet Volume 10.2 fL (9.4-12.4); Monocytes # 0.3 K/mcL (0.0-1.3); Monocytes % 4.5 %; Neutrophils # 4.6 K/mcL (1.6-8.9); Platelet Count 211 K/mcL (140-400); Red Blood Count 3.69 M/mcL (4.19-5.50); Segmented Neutrophils % 78.5 %; White Blood Count 5.8 K/mcL (4.3-11.1)
[2020-12-05 17:59] LABS: BUN/Creatinine Ratio 42 (6-26); Blood Urea Nitrogen 50 mg/dL (8-23); Calcium 8.6 mg/dL (8.6-10.3); Carbon Dioxide 20 mEq/L (23-29); Chloride 103 mEq/L (98-107); Glucose 126 mg/dL (70-105); Osmolality,Calculated 289 (280-300); Potassium 3.2 mEq/L (3.5-5.1); Sodium 132 mEq/L (136-145); eGFR For African Americans > 60 (> 60); eGFR For Non-African Americans 59 (> 60)
[2020-12-06] MEDS: Ipratropium Neb 0.5 MG NEBULIZER IH SCH ×5 (04:05→21:29)
[2020-12-06] MEDS: Levalbuterol Neb 1.25 MG/3 ML IH SCH ×5 (04:05→21:29)
[2020-12-06] MEDS: *HR* Enoxaparin 40 MG/0.4 ML SYRINGE SQ SCH (05:19)
[2020-12-06] MEDS ORDERED: Hydrocortisone Sodium Succ 100 MG/2 ML VIAL IVP ONE (07:30)
[2020-12-06] MEDS ORDERED: 0.9 % Sodium Chloride 500 ML IVC SCH (07:30)
[2020-12-06] MEDS: QUEtiapine Fumarate 25 MG TABLET PO SCH ×2 (07:55→21:06)
[2020-12-06] MEDS: Fluconazole 100 MG TABLET PO SCH (07:55)
[2020-12-06] MEDS: Chlorhexidine Rinse 15 ML MOUTHWASH MM SCH ×2 (07:55→21:06)
[2020-12-06] MEDS: Loratadine 10 MG TABLET PO SCH (07:55)
[2020-12-06] MEDS: Magic Mouthwash 10 ML UD Cup PO SCH ×3 (07:55→15:13)
[2020-12-06] MEDS: Artificial Tears SOLN 15 ML BOTTLE BOTH EYES SCH ×2 (07:57→21:09)
[2020-12-06] MEDS: *HR* Acetylcysteine 20% 600 MG/3 ML ORAL SYRINGE PO SCH ×3 (07:57→21:07)
[2020-12-06] MEDS: Saline Nasal Spray 44 ML BOTTLE NS SCH ×5 (07:58→21:08)
[2020-12-06] MEDS: Saliva Stimulant 44.3ml BOTTLE PO SCH ×4 (07:58→17:38)
[2020-12-06] MEDS: Ciprofloxacin/Dex *EAR* Susp 7.5 ML BOTTLE RIGHT EAR SCH ×2 (08:01→21:09)
[2020-12-06] MEDS ORDERED: Metoprolol XL (24 HR) Succ 50 MG TAB.ER.24H PO SCH (09:00)
[2020-12-06] MEDS ORDERED: DilTIAZem CD (24hr) 120 MG CAP.ER.24H PO SCH (09:00)
[2020-12-06] MEDS ORDERED: Hydrocortisone Sodium Succ 100 MG/2 ML VIAL IVP SCH (12:00)
[2020-12-06 15:27] LABS: BUN/Creatinine Ratio 36 (6-26); Blood Urea Nitrogen 38 mg/dL (8-23); Calcium 8.5 mg/dL (8.6-10.3); Carbon Dioxide 19 mEq/L (23-29); Chloride 105 mEq/L (98-107); Glucose 147 mg/dL (70-105); Osmolality,Calculated 286 (280-300); Potassium 3.3 mEq/L (3.5-5.1); Sodium 132 mEq/L (136-145); eGFR For African Americans > 60 (> 60); eGFR For Non-African Americans > 60 (> 60)
[2020-12-06] MEDS: Hydrocortisone Sodium Succ 100 MG/2 ML VIAL IVP SCH (17:39)
[2020-12-06] MEDS: Acetaminophen 325 MG TABLET PO PRN (18:36)
[2020-12-07] MEDS: Hydrocortisone Sodium Succ 100 MG/2 ML VIAL IVP SCH (00:18)
[2020-12-07] MEDS: Acetaminophen 325 MG TABLET PO PRN ×2 (02:39→16:59)
[2020-12-07] MEDS: Ipratropium Neb 0.5 MG NEBULIZER IH SCH ×4 (03:55→21:20)
[2020-12-07] MEDS: Levalbuterol Neb 1.25 MG/3 ML IH SCH ×4 (03:55→21:20)
[2020-12-07] MEDS ORDERED: *HR* Metoprolol 5 MG/5 ML VIAL IVP ONE (05:00)
[2020-12-07] MEDS ORDERED: Morphine Sulfate 2 MG/ML SYRINGE IVP ONE (05:01)
[2020-12-07] MEDS: *HR* Enoxaparin 40 MG/0.4 ML SYRINGE SQ SCH (05:23)
[2020-12-07] MEDS: Chlorhexidine Rinse 15 ML MOUTHWASH MM SCH ×2 (08:05→19:57)
[2020-12-07] MEDS: Magic Mouthwash 10 ML UD Cup PO SCH ×3 (08:05→16:56)
[2020-12-07] MEDS: *HR* Acetylcysteine 20% 600 MG/3 ML ORAL SYRINGE PO SCH ×3 (08:05→19:57)
[2020-12-07] MEDS: QUEtiapine Fumarate 25 MG TABLET PO SCH ×2 (08:05→19:57)
[2020-12-07] MEDS: Hydrocortisone 10 MG TABLET PO SCH ×2 (08:06→19:57)
[2020-12-07] MEDS: Loratadine 10 MG TABLET PO SCH (08:06)
[2020-12-07] MEDS: Fluconazole 100 MG TABLET PO SCH (08:07)
[2020-12-07] MEDS: Saliva Stimulant 44.3ml BOTTLE PO SCH ×3 (12:06→17:05)
[2020-12-07] MEDS: Saline Nasal Spray 44 ML BOTTLE NS SCH ×4 (12:08→17:19)
[2020-12-07] MEDS: Ciprofloxacin/Dex *EAR* Susp 7.5 ML BOTTLE RIGHT EAR SCH ×2 (12:09→19:58)
[2020-12-07] MEDS: Artificial Tears SOLN 15 ML BOTTLE BOTH EYES SCH ×2 (12:10→19:58)
[2020-12-07] MEDS ORDERED: Saliva Stimulant 44.3ml BOTTLE PO PRN (17:18)
[2020-12-07] MEDS ORDERED: *HR* Metoprolol 5 MG/5 ML VIAL IVP STA (22:31)
[2020-12-08] MEDS: Ipratropium Neb 0.5 MG NEBULIZER IH SCH ×4 (04:08→22:11)
[2020-12-08] MEDS: Levalbuterol Neb 1.25 MG/3 ML IH SCH ×4 (04:08→22:11)
[2020-12-08] MEDS: *HR* Metoprolol 5 MG/5 ML VIAL IVP PRN ×2 (04:10→06:57)
[2020-12-08] MEDS: *HR* Enoxaparin 40 MG/0.4 ML SYRINGE SQ SCH (06:20)
[2020-12-08] MEDS: Magic Mouthwash 10 ML UD Cup PO SCH ×3 (06:20→16:20)
[2020-12-08] MEDS ORDERED: *HR* Metoprolol 5 MG/5 ML VIAL IVP ONE ×2 (06:56→07:01)
[2020-12-08 07:52] LABS: Hematocrit 33.4 % (37.5-50.1); Hemoglobin 11.3 g/dL (12.9-16.9); Mean Corpuscular HGB Conc 33.8 g/dL (31.6-35.5); Mean Corpuscular Hemoglobin 31.2 pg (28.0-33.3); Mean Corpuscular Volume 92.3 fL (83.0-100.0); Mean Platelet Volume 10.4 fL (9.4-12.4); Platelet Count 275 K/mcL (140-400); Red Blood Count 3.62 M/mcL (4.19-5.50); Red Cell Distribution Width 14.6 % (11.5-14.5); White Blood Count 6.6 K/mcL (4.3-11.1)
[2020-12-08 08:13] LABS: BUN/Creatinine Ratio 29 (6-26); Blood Urea Nitrogen 30 mg/dL (8-23); Calcium 8.9 mg/dL (8.6-10.3); Carbon Dioxide 22 mEq/L (23-29); Chloride 105 mEq/L (98-107); Glucose 93 mg/dL (70-105); Magnesium 1.9 mg/dL (1.6-2.6); Osmolality,Calculated 286 (280-300); Sodium 135 mEq/L (136-145); eGFR For African Americans > 60 (> 60); eGFR For Non-African Americans > 60 (> 60)
[2020-12-08] MEDS: QUEtiapine Fumarate 25 MG TABLET PO SCH (08:28)
[2020-12-08] MEDS: Chlorhexidine Rinse 15 ML MOUTHWASH MM SCH ×2 (08:28→21:03)
[2020-12-08] MEDS: Hydrocortisone 10 MG TABLET PO SCH ×2 (08:28→21:09)
[2020-12-08] MEDS: Loratadine 10 MG TABLET PO SCH (08:28)
[2020-12-08] MEDS: Ciprofloxacin/Dex *EAR* Susp 7.5 ML BOTTLE RIGHT EAR SCH ×2 (08:29→21:18)
[2020-12-08] MEDS: Artificial Tears SOLN 15 ML BOTTLE BOTH EYES SCH ×2 (08:29→21:07)
[2020-12-08] MEDS: *HR* Acetylcysteine 20% 600 MG/3 ML ORAL SYRINGE PO SCH ×3 (08:30→21:04)
[2020-12-08] MEDS: Metoprolol XL (24 HR) Succ 25 MG TAB.ER.24H PO SCH (12:11)
[2020-12-08] MEDS: *HR* Digoxin 0.5 MG/2 ML AMPUL IVP SCH ×3 (12:11→23:43)
[2020-12-08] MEDS: Saline Nasal Spray 44 ML BOTTLE NS PRN (19:32)
[2020-12-08] MEDS ORDERED: Acetaminophen 325 MG TABLET PO ONE (22:18)
[2020-12-08] MEDS: Acetaminophen 325 MG TABLET PO PRN (22:27)
[2020-12-09] MEDS: Levalbuterol Neb 1.25 MG/3 ML IH SCH ×4 (04:02→22:05)
[2020-12-09] MEDS: Ipratropium Neb 0.5 MG NEBULIZER IH SCH ×4 (04:02→22:05)
[2020-12-09] MEDS: Acetaminophen 325 MG TABLET PO PRN ×3 (04:38→21:25)
[2020-12-09] MEDS: *HR* Enoxaparin 40 MG/0.4 ML SYRINGE SQ SCH (04:38)
[2020-12-09] MEDS: Chlorhexidine Rinse 15 ML MOUTHWASH MM SCH ×2 (08:00→21:27)
[2020-12-09] MEDS: Magic Mouthwash 10 ML UD Cup PO SCH ×3 (08:00→16:59)
[2020-12-09] MEDS: *HR* Digoxin 0.125 MG TABLET PO SCH (08:00)
[2020-12-09] MEDS: Metoprolol XL (24 HR) Succ 25 MG TAB.ER.24H PO SCH (08:00)
[2020-12-09] MEDS: Hydrocortisone 10 MG TABLET PO SCH ×2 (08:00→21:26)
[2020-12-09] MEDS: *HR* Acetylcysteine 20% 600 MG/3 ML ORAL SYRINGE PO SCH ×3 (08:00→21:26)
[2020-12-09] MEDS: Loratadine 10 MG TABLET PO SCH (08:00)
[2020-12-09] MEDS: Artificial Tears SOLN 15 ML BOTTLE BOTH EYES SCH ×2 (08:00→21:34)
[2020-12-09] MEDS: Ciprofloxacin/Dex *EAR* Susp 7.5 ML BOTTLE RIGHT EAR SCH ×2 (08:04→21:34)
[2020-12-09] MEDS: Finasteride 5 MG TABLET PO SCH (11:48)
[2020-12-09] MEDS: Saline Nasal Spray 44 ML BOTTLE NS PRN (19:41)
[2020-12-10] MEDS: Ipratropium Neb 0.5 MG NEBULIZER IH SCH ×4 (04:01→22:15)
[2020-12-10] MEDS: Levalbuterol Neb 1.25 MG/3 ML IH SCH ×4 (04:01→22:15)
[2020-12-10] MEDS: *HR* Enoxaparin 40 MG/0.4 ML SYRINGE SQ SCH (05:10)
[2020-12-10] MEDS: Acetaminophen 325 MG TABLET PO PRN ×2 (05:10→20:12)
[2020-12-10] MEDS: Magic Mouthwash 10 ML UD Cup PO SCH ×3 (07:50→16:41)
[2020-12-10] MEDS: Loratadine 10 MG TABLET PO SCH (07:50)
[2020-12-10] MEDS: Finasteride 5 MG TABLET PO SCH (07:50)
[2020-12-10] MEDS: *HR* Acetylcysteine 20% 600 MG/3 ML ORAL SYRINGE PO SCH ×3 (07:50→20:13)
[2020-12-10] MEDS: *HR* Digoxin 0.125 MG TABLET PO SCH (07:50)
[2020-12-10] MEDS: Metoprolol XL (24 HR) Succ 25 MG TAB.ER.24H PO SCH ×2 (07:50→20:14)
[2020-12-10] MEDS: Chlorhexidine Rinse 15 ML MOUTHWASH MM SCH ×2 (07:50→20:13)
[2020-12-10] MEDS: Artificial Tears SOLN 15 ML BOTTLE BOTH EYES SCH ×2 (07:51→20:13)
[2020-12-10] MEDS: Saline Nasal Spray 44 ML BOTTLE NS PRN (07:51)
[2020-12-10] MEDS: Hydrocortisone 10 MG TABLET PO SCH ×2 (07:51→20:14)
[2020-12-11 03:29] LABS: Hematocrit 32.2 % (37.5-50.1); Hemoglobin 10.6 g/dL (12.9-16.9); Mean Corpuscular HGB Conc 32.9 g/dL (31.6-35.5); Mean Corpuscular Hemoglobin 30.5 pg (28.0-33.3); Mean Corpuscular Volume 92.5 fL (83.0-100.0); Mean Platelet Volume 10.3 fL (9.4-12.4); Platelet Count 251 K/mcL (140-400); Red Blood Count 3.48 M/mcL (4.19-5.50); Red Cell Distribution Width 14.8 % (11.5-14.5); White Blood Count 5.8 K/mcL (4.3-11.1)
[2020-12-11 03:30] LABS: BUN/Creatinine Ratio 21 (6-26); Blood Urea Nitrogen 21 mg/dL (8-23); Calcium 8.7 mg/dL (8.6-10.3); Carbon Dioxide 19 mEq/L (23-29); Chloride 108 mEq/L (98-107); Glucose 128 mg/dL (70-105); Magnesium 1.7 mg/dL (1.6-2.6); Osmolality,Calculated 283 (280-300); Potassium 3.5 mEq/L (3.5-5.1); Sodium 134 mEq/L (136-145); eGFR For African Americans > 60 (> 60); eGFR For Non-African Americans > 60 (> 60)
[2020-12-11] MEDS: Levalbuterol Neb 1.25 MG/3 ML IH SCH ×4 (03:51→21:46)
[2020-12-11] MEDS: Ipratropium Neb 0.5 MG NEBULIZER IH SCH ×4 (03:51→21:46)
[2020-12-11] MEDS ORDERED: *HR* Metoprolol 5 MG/5 ML VIAL IVP ONE (04:51)
[2020-12-11] MEDS: *HR* Enoxaparin 40 MG/0.4 ML SYRINGE SQ SCH (05:21)
[2020-12-11] MEDS: Chlorhexidine Rinse 15 ML MOUTHWASH MM SCH ×2 (08:00→22:20)
[2020-12-11] MEDS: Magic Mouthwash 10 ML UD Cup PO SCH ×3 (08:00→16:06)
[2020-12-11] MEDS: *HR* Acetylcysteine 20% 600 MG/3 ML ORAL SYRINGE PO SCH ×3 (08:00→22:20)
[2020-12-11] MEDS: Loratadine 10 MG TABLET PO SCH (08:01)
[2020-12-11] MEDS: Hydrocortisone 10 MG TABLET PO SCH ×2 (08:01→22:21)
[2020-12-11] MEDS: Metoprolol XL (24 HR) Succ 25 MG TAB.ER.24H PO SCH ×2 (08:01→22:20)
[2020-12-11] MEDS: *HR* Digoxin 0.125 MG TABLET PO SCH (08:01)
[2020-12-11] MEDS: Finasteride 5 MG TABLET PO SCH (08:01)
[2020-12-11] MEDS: Saline Nasal Spray 44 ML BOTTLE NS PRN (08:06)
[2020-12-11] MEDS: Artificial Tears SOLN 15 ML BOTTLE BOTH EYES SCH ×2 (08:06→22:21)
[2020-12-11] MEDS: Acetaminophen 325 MG TABLET PO PRN (22:28)
[2020-12-12] MEDS: Levalbuterol Neb 1.25 MG/3 ML IH SCH ×4 (04:11→22:22)
[2020-12-12] MEDS: Ipratropium Neb 0.5 MG NEBULIZER IH SCH ×4 (04:11→22:22)
[2020-12-12] MEDS: Hydrocortisone 10 MG TABLET PO SCH ×2 (08:08→21:00)
[2020-12-12] MEDS: *HR* Enoxaparin 40 MG/0.4 ML SYRINGE SQ SCH (08:08)
[2020-12-12] MEDS: *HR* Acetylcysteine 20% 600 MG/3 ML ORAL SYRINGE PO SCH ×3 (08:08→20:59)
[2020-12-12] MEDS: Finasteride 5 MG TABLET PO SCH (08:09)
[2020-12-12] MEDS: Artificial Tears SOLN 15 ML BOTTLE BOTH EYES SCH ×2 (08:09→21:01)
[2020-12-12] MEDS: *HR* Digoxin 0.125 MG TABLET PO SCH (08:09)
[2020-12-12] MEDS: Metoprolol XL (24 HR) Succ 25 MG TAB.ER.24H PO SCH ×2 (08:09→21:01)
[2020-12-12] MEDS: Chlorhexidine Rinse 15 ML MOUTHWASH MM SCH ×2 (08:09→20:59)
[2020-12-12] MEDS: Loratadine 10 MG TABLET PO SCH (08:09)
[2020-12-12] MEDS: Magic Mouthwash 10 ML UD Cup PO SCH ×3 (08:09→16:26)
[2020-12-12] MEDS: Acetaminophen 325 MG TABLET PO PRN (17:54)
[2020-12-13] MEDS: Levalbuterol Neb 1.25 MG/3 ML IH SCH ×4 (03:50→22:21)
[2020-12-13] MEDS: Ipratropium Neb 0.5 MG NEBULIZER IH SCH ×4 (03:50→22:21)
[2020-12-13] MEDS: Acetaminophen 325 MG TABLET PO PRN ×2 (05:08→19:22)
[2020-12-13] MEDS: *HR* Enoxaparin 40 MG/0.4 ML SYRINGE SQ SCH (05:08)
[2020-12-13 07:07] LABS: BUN/Creatinine Ratio 27 (6-26); Blood Urea Nitrogen 23 mg/dL (8-23); Calcium 8.4 mg/dL (8.6-10.3); Carbon Dioxide 20 mEq/L (23-29); Chloride 109 mEq/L (98-107); Digoxin 0.9 ng/mL (0.8-2.0); Glucose 122 mg/dL (70-105); Osmolality,Calculated 285 (280-300); Potassium 3.4 mEq/L (3.5-5.1); Sodium 135 mEq/L (136-145); eGFR For African Americans > 60 (> 60); eGFR For Non-African Americans > 60 (> 60)
[2020-12-13] MEDS: Hydrocortisone 10 MG TABLET PO SCH ×2 (07:39→19:22)
[2020-12-13] MEDS: *HR* Digoxin 0.125 MG TABLET PO SCH (07:39)
[2020-12-13] MEDS: Chlorhexidine Rinse 15 ML MOUTHWASH MM SCH ×2 (07:39→19:22)
[2020-12-13] MEDS: Finasteride 5 MG TABLET PO SCH (07:39)
[2020-12-13] MEDS: Loratadine 10 MG TABLET PO SCH (07:39)
[2020-12-13] MEDS: *HR* Acetylcysteine 20% 600 MG/3 ML ORAL SYRINGE PO SCH ×3 (07:39→19:22)
[2020-12-13] MEDS: Metoprolol XL (24 HR) Succ 25 MG TAB.ER.24H PO SCH ×2 (07:39→19:22)
[2020-12-13] MEDS: Magic Mouthwash 10 ML UD Cup PO SCH ×3 (07:39→16:31)
[2020-12-13] MEDS: Artificial Tears SOLN 15 ML BOTTLE BOTH EYES SCH ×2 (09:37→20:50)
[2020-12-13] MEDS: Melatonin 3 MG TABLET PO PRN (20:50)
[2020-12-14] MEDS: Acetaminophen 325 MG TABLET PO PRN ×2 (02:38→16:21)
[2020-12-14] MEDS: Levalbuterol Neb 1.25 MG/3 ML IH SCH ×4 (03:39→22:16)
[2020-12-14] MEDS: Ipratropium Neb 0.5 MG NEBULIZER IH SCH ×4 (03:40→22:16)
[2020-12-14] MEDS: Magic Mouthwash 10 ML UD Cup PO SCH ×3 (06:06→16:19)
[2020-12-14] MEDS: *HR* Enoxaparin 40 MG/0.4 ML SYRINGE SQ SCH (06:06)
[2020-12-14] MEDS: Finasteride 5 MG TABLET PO SCH (10:24)
[2020-12-14] MEDS: *HR* Digoxin 0.125 MG TABLET PO SCH (10:24)
[2020-12-14] MEDS: Metoprolol XL (24 HR) Succ 25 MG TAB.ER.24H PO SCH ×2 (10:24→20:43)
[2020-12-14] MEDS: Artificial Tears SOLN 15 ML BOTTLE BOTH EYES SCH ×2 (10:24→20:45)
[2020-12-14] MEDS: Loratadine 10 MG TABLET PO SCH (10:24)
[2020-12-14] MEDS: Hydrocortisone 10 MG TABLET PO SCH ×2 (10:24→20:41)
[2020-12-14] MEDS: *HR* Acetylcysteine 20% 600 MG/3 ML ORAL SYRINGE PO SCH ×3 (10:25→20:49)
[2020-12-14] MEDS: Chlorhexidine Rinse 15 ML MOUTHWASH MM SCH ×2 (10:25→20:44)
[2020-12-15] MEDS: Acetaminophen 325 MG TABLET PO PRN ×3 (00:58→20:21)
[2020-12-15] MEDS: Ipratropium Neb 0.5 MG NEBULIZER IH SCH ×4 (04:23→21:58)
[2020-12-15] MEDS: Levalbuterol Neb 1.25 MG/3 ML IH SCH ×4 (04:23→21:58)
[2020-12-15] MEDS: *HR* Enoxaparin 40 MG/0.4 ML SYRINGE SQ SCH (05:35)
[2020-12-15] MEDS: Hydrocortisone 10 MG TABLET PO SCH ×2 (09:36→20:21)
[2020-12-15] MEDS: Finasteride 5 MG TABLET PO SCH (09:36)
[2020-12-15] MEDS: *HR* Digoxin 0.125 MG TABLET PO SCH (09:36)
[2020-12-15] MEDS: Loratadine 10 MG TABLET PO SCH (09:36)
[2020-12-15] MEDS: Chlorhexidine Rinse 15 ML MOUTHWASH MM SCH ×2 (09:36→20:22)
[2020-12-15] MEDS: *HR* Acetylcysteine 20% 600 MG/3 ML ORAL SYRINGE PO SCH ×3 (09:36→20:22)
[2020-12-15] MEDS: Magic Mouthwash 10 ML UD Cup PO SCH ×3 (09:36→15:02)
[2020-12-15] MEDS: Metoprolol XL (24 HR) Succ 25 MG TAB.ER.24H PO SCH ×2 (09:37→20:22)
[2020-12-15] MEDS: Artificial Tears SOLN 15 ML BOTTLE BOTH EYES SCH ×2 (09:38→20:22)
[2020-12-16] MEDS: Levalbuterol Neb 1.25 MG/3 ML IH SCH ×2 (03:44→09:02)
[2020-12-16] MEDS: Ipratropium Neb 0.5 MG NEBULIZER IH SCH ×2 (03:44→09:02)
[2020-12-16] MEDS: Acetaminophen 325 MG TABLET PO PRN ×2 (04:47→13:24)
[2020-12-16] MEDS: *HR* Enoxaparin 40 MG/0.4 ML SYRINGE SQ SCH (04:47)
[2020-12-16] MEDS: Metoprolol XL (24 HR) Succ 25 MG TAB.ER.24H PO SCH (07:48)
[2020-12-16] MEDS: Magic Mouthwash 10 ML UD Cup PO SCH ×2 (07:48→12:06)
[2020-12-16] MEDS: Hydrocortisone 10 MG TABLET PO SCH (07:48)
[2020-12-16] MEDS: *HR* Acetylcysteine 20% 600 MG/3 ML ORAL SYRINGE PO SCH (07:48)
[2020-12-16] MEDS: Loratadine 10 MG TABLET PO SCH (07:48)
[2020-12-16] MEDS: *HR* Digoxin 0.125 MG TABLET PO SCH (07:49)
[2020-12-16] MEDS: Finasteride 5 MG TABLET PO SCH (07:49)
[2020-12-16] MEDS: Chlorhexidine Rinse 15 ML MOUTHWASH MM SCH (07:49)
[2020-12-16] MEDS: Artificial Tears SOLN 15 ML BOTTLE BOTH EYES SCH (07:56)
[2020-12-16 11:06] VITALS: BP 101/67; PULSE 103; TEMP 98.3; O2SAT 92
== END 2020-12-16 13:50 | disposition home health service (06) | DRG 177 ==
LOC: 3NENU 01:31 → EMEROOARM 01:31 → 3NENU 06:34 → SUATTDRO 18:51 → 2NNU 11-02 15:41 → 2ANU 11-25 14:39
PROVIDERS: ADMIT Internal Medicine; ATTEND Family Medicine